=== PATIENT | female | born 1985 | race Caucasian/White ===

== ENCOUNTER 2017-07-23 15:58 | Emergency (ER) | payer SELFPAY ==
[~2017-07-23 15:58] MED LIST: AMOX500T PO; CIPR500T94 PO; HYDR-971 PO; ONDA4TAB10 PO
[2017-07-23] MEDS ORDERED: IV NORMAL SALINE 1,000ML 1,000 ML IV ONE (16:30)
[2017-07-23 16:47] LABS: BASO # 0.1 x10^3/uL (0.0-0.2); BASO % 1 % (0-3); EOS # 0.1 x10^3/uL (0.0-0.7); EOS % 1 % (0-3); HEMATOCRIT 41.6 % (36.0-47.0); LYMPH # 2.5 x10^3/uL (1.0-4.8); LYMPH % 23 % (24-48); MEAN CORPUSCULAR HEMOGLOBIN 28 pg (25-35); MEAN CORPUSCULAR HGB CONC 34 g/dL (31-37); MEAN CORPUSCULAR VOLUME 83 fL (79-100); MONO # 0.5 x10^3/uL (0.0-1.1); MONO % 5 % (0-9); NEUT # 7.6 x10^3uL (1.8-7.7); NEUT % 71 % (31-73); PLATELET COUNT 475 x10^3/uL (140-400); RED BLOOD COUNT 5.03 x10^6/uL (3.50-5.40); RED CELL DISTRIBUTION WIDTH 14.3 % (11.5-14.5); WHITE BLOOD COUNT 10.8 x10^3/uL (4.0-11.0)
[2017-07-23] MEDS ORDERED: ZIPRASIDONE IM 20 MG VIAL. IM ONE (17:00)
[2017-07-23 17:04] LABS: ACETAMIN < 2.0 mcg/mL (10-30); ETHANOL < 10 mg/dL (0-10); SALIC 3.1 mg/dL (2.8-20.0)
[2017-07-23 17:06] LABS: ALBUMIN 3.8 g/dL (3.4-5.0); CALCIUM 9.5 mg/dL (8.5-10.1); CREATININE 0.7 mg/dL (0.6-1.0); DIRECT BILIRUBIN 0.1 mg/dL (0.0-0.2); GFR 98.9; MAGNESIUM 2.1 mg/dL (1.8-2.4); POTASSIUM 3.7 mmol/L (3.5-5.1); TOTAL BILIRUBIN 0.2 mg/dL (0.2-1.0)
--- NOTE | 2017-07-23 17:12 | PHYS DOC ---
Past History Past Medical History: Other Additional Past Medical Histor: heroine abuse Past Surgical History: , Tonsillectomy Alcohol Use: None Drug Use: None Adult General Chief Complaint Chief Complaint: DRUG ABUSE HPI HPI 31-year-old female patient with history of IV heroine abuse states she injected herself with something that she thinks poisoning her. Patient complaining of shortness of breath and almost passed out and doesn't feel good and wants something to make her feels better. She states sh is becoming skinny and she thinks she is going to and asking for Ativan that was given in [facility] last week when she had the same problem. Patient is very agitated and taking constantly and complaining of hallucination and unable to give history. Review of Systems Review of Systems unable to obtain because of medical condition Family History Family History Non-contributory Current Medications Current Medications Current Medications Medications (Trade) Dose Ordered Sig/Dariel Start Time Stop Time Status Last Admin Dose Admin Sodium Chloride 1,000 ml @ 1,000 mls/hr 1X ONCE 07/23/17 16:30 07/23/17 17:29 07/23/17 16:36 1,000 MLS/HR Ziprasidone (Geodon Im) 10 mg 1X ONCE 07/23/17 17:00 07/23/17 17:01 Allergies Allergies Allergies Coded Allergies Type Severity Reaction Last Updated Verified codeine Allergy Severe Itching 04/25/15 Yes prochlorperazine Allergy Intermediate 07/30/14 Yes Physical Exam Physical Exam Constitutional: Anxious, moderate distress, non-toxic appearance. [] HENT: Normocephalic, atraumatic] Eyes: PERRLA, EOMI, conjunctiva normal, no discharge. [] Neck: Normal range of motion, no tenderness, supple, no stridor. [] Cardiovascular: Tachycardia, no murmur [] Lungs & Thorax: Bilateral breath sounds clear to auscultation, hyperventilating [] Abdomen: Bowel sounds normal, soft, no tenderness, no masses, no pulsatile masses. [] Skin: Warm, dry, no erythema, no rash. [] Back: No tenderness, no CVA tenderness. [] Extremities: No tenderness, no cyanosis, no clubbing, ROM intact, no edema. [] Neurologic: Alert and oriented X 1, normal motor function, normal sensory function, no focal deficits noted. [] Psychologic: Anxious, denies suicidal Current Patient Data Lab Results Laboratory Tests Test 07/23/17 16:30 White Blood Count 10.8 x10^3/uL (4.0-11.0) Red Blood Count 5.03 x10^6/uL (3.50-5.40) Hemoglobin 14.0 g/dL (12.0-15.5) Hematocrit 41.6 % (36.0-47.0) Mean Corpuscular Volume 83 fL (79-100) Mean Corpuscular Hemoglobin 28 pg (25-35) Mean Corpuscular Hemoglobin Concent 34 g/dL (31-37) Red Cell Distribution Width 14.3 % (11.5-14.5) Platelet Count 475 x10^3/uL (140-400) H Neutrophils (%) (Auto) 71 % (31-73) Lymphocytes (%) (Auto) 23 % (24-48) L Monocytes (%) (Auto) 5 % (0-9) Eosinophils (%) (Auto) 1 % (0-3) Basophils (%) (Auto) 1 % (0-3) Neutrophils # (Auto) 7.6 x10^3uL (1.8-7.7) Lymphocytes # (Auto) 2.5 x10^3/uL (1.0-4.8) Monocytes # (Auto) 0.5 x10^3/uL (0.0-1.1) Eosinophils # (Auto) 0.1 x10^3/uL (0.0-0.7) Basophils # (Auto) 0.1 x10^3/uL (0.0-0.2) EKG EKG [] Radiology/Procedures Radiology/Procedures [] Course & Med Decision Making Course & Med Decision Making Pertinent Labs are pending. Evaluation of patient in ER showed 31-year-old female patient with history of heroin and methamphetamine abuse brought in by a friend and her 5-year-old child because of using injection something like that make her anxious and shortness of breath. She was very agitated and tachycardic at arrival to ER with methamphetamine influenced. Geodon 10 mg IM given with IV fluid. Patient had her 5-year-old child with her and [place] became involved and took custody of child. Patient care transferred to Dr. Beltran at [address]. [address] Dr[address] Grossman note for details. Impression - 1. Polysubstance Abuse Pt encourage to stop illicit drug use. Pt. currently refuses hospitalization for drug abuse. Pt. encourage to follow up with Counseling center. Pt at discharge reports she now feels normal. Pt. ambulatory without problems. Dragon Disclaimer Dragon Disclaimer This electronic medical record was generated, in whole or in part, using a voice recognition dictation system. Departure Departure: Referrals: PCP,NO (PCP) BRUCE GROSSMAN MD Jul 23, 2017 17:12 DERRICK BELTRAN MD Jul 24, 2017 05:33
[2017-07-23 18:45] VITALS: BP 120/78
[2017-07-23 19:14] LABS: AMPHETAMINE/METHAMPHETAMINE POS (NEG); BARBITURATES NEG (NEG); BENZODIAZEPINES NEG (NEG); CANNABINOIDS NEG (NEG); COCAINE NEG (NEG); METHADONE NEG (NEG); OPIATES POS (NEG); PHENCYCLIDINE NEG (NEG)
[2017-07-23 19:44] LABS: BACTERIA,URINE FEW /HPF (0-FEW); BILIRUBIN,URINE NEG (NEG); CLARITY,URINE CLEAR; COLOR,URINE STRAW; GLUCOSE,URINE NEG (NEG); NITRITE,URINE NEG (NEG); RBC,URINE OCC /HPF (0-2); UROBILINOGEN,URINE 0.2 mg/dL (0.2 mg/dL)
[2017-07-23 19:45] LABS: SQUAMOUS EPITHELIAL CELL,UR MANY /LPF
== END 2017-07-23 19:37 | disposition home or self-care (01) ==
LOC: ER 15:58
DX: F19.10 Other psychoactive substance abuse, uncomplicated (principal); F15.10 Other stimulant abuse, uncomplicated; Z88.5 Allergy status to narcotic agent; Z88.8 Allergy status to other drugs, medicaments and biological substances
CPT/HCPCS: 36415; 80048; 80076; 80307; 81001; 83735; 84702; 85025; 87086; 96360; 96372; 99284; G0480; J3486; G0479; J7030

== ENCOUNTER 2019-05-17 22:17 | Inpatient (IN) | payer MEDICAID ==
[~2019-05-17] VITALS: Ht 157.5 cm; Wt 71.7 kg
[~2019-05-17 22:17] MED LIST changes: +HYDR-3165 PO; -HYDR-971 PO
[2019-05-17] MEDS ORDERED: MORPHINE SULFATE 4 MG/ML DISP.SYRIN. IM ONE (23:15)
[2019-05-17 23:25] LABS: AMPHETAMINE/METHAMPHETAMINE NEG (NEG); BARBITURATES NEG (NEG); BENZODIAZEPINES NEG (NEG); CANNABINOIDS NEG (NEG); COCAINE NEG (NEG); METHADONE NEG (NEG); OPIATES POS (NEG); PHENCYCLIDINE NEG (NEG)
[2019-05-17 23:51] LABS: BASO # 0.1 x10^3/uL (0.0-0.2); BASO % 1 % (0-3); EOS % 0 % (0-3); HEMATOCRIT 44.2 % (36.0-47.0); HEMOGLOBIN 14.2 g/dL (12.0-15.5); LYMPH # 1.5 x10^3/uL (1.0-4.8); LYMPH % 8 % (24-48); MEAN CORPUSCULAR HEMOGLOBIN 28 pg (25-35); MEAN CORPUSCULAR HGB CONC 32 g/dL (31-37); MEAN CORPUSCULAR VOLUME 86 fL (79-100); MONO % 5 % (0-9); NEUT # 17.3 x10^3uL (1.8-7.7); NEUT % 86 % (31-73); PLATELET COUNT 201 x10^3/uL (140-400); RED BLOOD COUNT 5.15 x10^6/uL (3.50-5.40); RED CELL DISTRIBUTION WIDTH 17.1 % (11.5-14.5); WHITE BLOOD COUNT 20.1 x10^3/uL (4.0-11.0)
[2019-05-18] VITALS (7 sets, daily range): BP systolic 113–122; BP diastolic 74–90
[2019-05-18] MEDS ORDERED: MORPHINE SULFATE 4 MG/ML DISP.SYRIN. IV ONE
[2019-05-18 00:02] LABS: CALCIUM 8.1 mg/dL (8.5-10.1); CREATININE 0.8 mg/dL (0.6-1.0); GFR 83.7; POTASSIUM 4.1 mmol/L (3.5-5.1)
[2019-05-18 00:17] LABS: % BANDS 9 % (0-9); % EOS 1 % (0-5); % LYMPHS 10 % (24-48); % MONOS 3 % (0-10); % SEGS 77 % (35-66); ALBUMIN 2.5 g/dL (3.4-5.0); ALBUMIN/GLOBULIN RATIO 0.6 (1.0-1.7); ANISOCYTOSIS SLIGHT; C REACTIVE PROTEIN 26.8 mg/L (0-3.3); PLT ESTIMATE ADEQUATE (ADEQUATE); TOTAL BILIRUBIN 1.2 mg/dL (0.2-1.0); TOTAL PROTEIN 6.6 g/dL (6.4-8.2)
[2019-05-18] MEDS ORDERED: PIPERACILLIN/TAZOBACTAM 3.375 GM in IV NORMAL SALINE 50ML 50 ML IV ONE (00:30)
[2019-05-18] MEDS ORDERED: VANCOMYCIN 1 GM in IV NORMAL SALINE 250ML 250 ML IV ONE (00:30)
[2019-05-18] MEDS ORDERED: ONDANSETRON PF 4 MG/2 ML VIAL. IV PRN (00:45)
[2019-05-18] MEDS ORDERED: PIP/TAZO PER PHARMACY MC PRN (00:45)
[2019-05-18] MEDS ORDERED: PIPERACILLIN/TAZOBACTAM 3.375 GM VIAL IV ONE (01:09)
[2019-05-18] MEDS ORDERED: IV NORMAL SALINE 50ML 50 ML ONE (01:09)
--- NOTE | 2019-05-18 01:17 | RAD ---
STUDY: VENOUS LOWER EXT BILATERAL INDICATION: Lower extremity swelling and pain. TECHNIQUE: Color-flow and pulsed wave duplex ultrasound with compression of venous structures of the bilateral lower extremities. COMPARISON: None Available. FINDINGS: Duplex ultrasound with compression of the deep venous structures of the bilateral lower extremities from the common femoral vein through the popliteal vein is negative for DVT. The posterior tibial and peroneal veins are segmentally visualized and patent where seen. Extensive subcutaneous edema extending from the groin to the ankles. Pulsatile venous waveforms noted. Enlarged inguinal lymph nodes bilaterally without fatty irma. IMPRESSION: 1. No deep venous thrombosis seen throughout either lower extremity. 2. Pulsatile venous waveforms which could represent a manifestation of volume overload. 3. Extensive subcutaneous edema extending from the groin to the ankle bilaterally. 4. Enlarged inguinal lymph nodes bilaterally without fatty irma. The morphology and echotexture makes these nonspecific and a malignant process is not excluded. Recommend correlation with patient history. Electronically signed by: CELESTE JUDD MD (05/18/2019 1:14 AM) [facility]
[2019-05-18] MEDS ORDERED: IV NORMAL SALINE 250ML 250 ML ONE (02:18)
[2019-05-18] MEDS ORDERED: VANCOMYCIN 1 GM VIAL. ONE (02:19)
[2019-05-18] MEDS: MORPHINE SULFATE 2 MG/ML DISP.SYRIN. IV PRN ×3 (02:28→08:22)
--- NOTE | 2019-05-18 05:56 | PHYS DOC ---
Past History Past Medical History: CHF, Other Additional Past Medical Histor: heroine abuse Past Surgical History: No Surgical History Alcohol Use: None Drug Use: Heroin, Methamphetamine Adult General Chief Complaint Chief Complaint: LOWER EXTREMITY EDEMA HPI HPI Patient is a 33-year-old female with history of IV drug use, recently diagnosed congestive heart failure who presents with anasarca with bilateral lower extremity swelling and redness right leg extending from calf to proximal thigh. Patient reports increased right leg pain and swelling with a past 24-48 hours. Pain is rated moderate to severe. No fever chills nausea vomiting or sweats. Denies history of cellulitis. Patient reports chronic shortness of breath. 90s on-call drug use. [] Review of Systems Review of Systems Review symptoms as per history of present illness. All other review symptoms are negative. All other systems were reviewed and found to be within normal limits, except as documented in this note. Current Medications Current Medications Current Medications Medications (Trade) Dose Ordered Sig/Dariel Start Time Stop Time Status Last Admin Dose Admin Lorazepam (Ativan Inj) 1 mg 1X ONCE 05/17/19 23:15 05/17/19 23:16 DC 05/17/19 23:54 1 MG Morphine Sulfate (Morphine 4mg Syringe) 4 mg 1X ONCE 05/18/19 00:00 05/18/19 00:24 DC 05/17/19 23:54 4 MG Allergies Allergies Allergies Coded Allergies Type Severity Reaction Last Updated Verified codeine Allergy Severe Itching 04/25/15 Yes prochlorperazine Allergy Intermediate 07/30/14 Yes Physical Exam Physical Exam Constitutional: Well developed, anasarca, moderate discomfort secondary to pain. [] HENT: Normocephalic, atraumatic, bilateral external ears normal, oropharynx betty st, no oral exudates, nose normal. [] Eyes: PERRLA, EOMI, conjunctiva normal, no discharge. [] Neck: Normal range of motion, no tenderness, supple, no stridor. [] Cardiovascular:Heart rate regular rhythm, no murmur [] Lungs & Thorax: Respirations nonlabored, diminished breath sounds secondary to h abitus.[] Abdomen: Bowel sounds normal, soft, ascites with skin edema.[] Skin: No ileitis right leg extending to right thigh, petechiae on right lateral thigh.] Back: No tenderness, no CVA tenderness. [] Extremities: Bilateral lower extremity edema, with right leg swelling tenderness greater than left.. [] Neurologic: Alert and oriented X 3, normal motor function, normal sensory function, no focal deficits noted. [] Psychologic: Affect normal, judgement normal, mood normal. [] Current Patient Data Vital Signs Vital Signs Date Time Temp Pulse Resp B/P (MAP) Pulse Ox O2 Delivery O2 Flow Rate FiO2 05/18/19 05:02 18 96 Room Air 05/18/19 03:10 98.2 107 113/74 (87) Lab Results Laboratory Tests Test 05/17/19 22:35 05/17/19 23:20 Urine Opiates Screen Pos (NEG) Urine Methadone Screen Neg (NEG) Urine Barbiturates Neg (NEG) Urine Phencyclidine Screen Neg (NEG) Urine Amphetamine/Methamphetamine Neg (NEG) Urine Benzodiazepines Screen Neg (NEG) Urine Cocaine Screen Neg (NEG) Urine Cannabinoids Screen Neg (NEG) Urine Ethyl Alcohol Neg (NEG) White Blood Count 20.1 x10^3/uL (4.0-11.0) H Red Blood Count 5.15 x10^6/uL (3.50-5.40) Hemoglobin 14.2 g/dL (12.0-15.5) Hematocrit 44.2 % (36.0-47.0) Mean Corpuscular Volume 86 fL (79-100) Mean Corpuscular Hemoglobin 28 pg (25-35) Mean Corpuscular Hemoglobin Concent 32 g/dL (31-37) Red Cell Distribution Width 17.1 % (11.5-14.5) H Platelet Count 201 x10^3/uL (140-400) Neutrophils (%) (Auto) 86 % (31-73) H Lymphocytes (%) (Auto) 8 % (24-48) L Monocytes (%) (Auto) 5 % (0-9) Eosinophils (%) (Auto) 0 % (0-3) Basophils (%) (Auto) 1 % (0-3) Neutrophils # (Auto) 17.3 x10^3uL (1.8-7.7) H Lymphocytes # (Auto) 1.5 x10^3/uL (1.0-4.8) Monocytes # (Auto) 1.0 x10^3/uL (0.0-1.1) Eosinophils # (Auto) 0.0 x10^3/uL (0.0-0.7) Basophils # (Auto) 0.1 x10^3/uL (0.0-0.2) Segmented Neutrophils % 77 % (35-66) H Band Neutrophils % 9 % (0-9) Lymphocytes % 10 % (24-48) L Monocytes % 3 % (0-10) Eosinophils % 1 % (0-5) Platelet Estimate Adequate (ADEQUATE) Anisocytosis Slight Maternal Serum HCG Beta Subunit < 1 mIU/mL (0-6) Sodium Level 141 mmol/L (136-145) Potassium Level 4.1 mmol/L (3.5-5.1) Chloride Level 106 mmol/L (98-107) Carbon Dioxide Level 23 mmol/L (21-32) Anion Gap 12 (6-14) Blood Urea Nitrogen 9 mg/dL (7-20) Creatinine 0.8 mg/dL (0.6-1.0) Estimated GFR (Cockcroft-Gault) 83.7 BUN/Creatinine Ratio 11 (6-20) Glucose Level 83 mg/dL (70-99) Lactic Acid Level 1.4 mmol/L (0.4-2.0) Calcium Level 8.1 mg/dL (8.5-10.1) L Total Bilirubin 1.2 mg/dL (0.2-1.0) H Aspartate Amino Transferase (AST) 27 U/L (15-37) Alanine Aminotransferase (ALT) 17 U/L (14-59) Alkaline Phosphatase 224 U/L (46-116) H Troponin I Quantitative < 0.017 ng/mL (0-0.055) C-Reactive Protein 26.8 mg/L (0-3.3) H FK-Xlr-H-Type Natriuretic Peptide 5771 pg/mL (0-124) H Total Protein 6.6 g/dL (6.4-8.2) Albumin 2.5 g/dL (3.4-5.0) L Albumin/Globulin Ratio 0.6 (1.0-1.7) L Ethyl Alcohol Level < 10 mg/dL (0-10) EKG EKG [EKG: Sinus tach] Radiology/Procedures Radiology/Procedures [Chest x-ray: Cardiomegaly CV ultrasound: pending] Course & Med Decision Making Course & Med Decision Making Pertinent Labs and Imaging studies reviewed. (See chart for details) [Ansarca with cellulitis right lower extremities. No respiratory distress or compromise. Antibiotics started. Dr. Degroot to admit] Sg Disclaimer Sg Disclaimer This electronic medical record was generated, in whole or in part, using a voice recognition dictation system. Departure Departure: Impression: Primary Impression: Anasarca Additional Impression: Cellulitis of right lower extremity Disposition: ADMITTED INPATIENT Condition: STABLE Referrals: PCP,NO (PCP) Problem Qualifiers AVERY GILMAN DO May 18, 2019 05:56
[2019-05-18] MEDS: PIPERACILLIN/TAZOBACTAM 3.375 GM in IV NORMAL SALINE 50ML 50 ML IV SCH ×4 (06:02→23:58)
--- NOTE | 2019-05-18 06:02 | EKG ---
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
--- NOTE | 2019-05-18 08:06 | RAD ---
CHEST AP ONLY History: Shortness of air Comparison: February 12, 2011 Findings: Single view of the chest is submitted. There is somewhat suboptimal inspiration. There is mild bibasilar airspace opacity. There is no significant pneumothorax. There could be very small bilateral pleural effusions. Pericardial cardiac silhouette appears more enlarged than previously. Impression: 1. Pericardial cardiac silhouette appears more enlarged than previously and there are suspected very small bilateral pleural effusions although better compared with PA chest to include lateral view. There is also mild bibasilar airspace opacity which may be atelectasis or infiltrates. Electronically signed by: Ramo Rush MD (05/18/2019 8:03 AM) [facility]
[2019-05-18] MEDS: VANCOMYCIN PER PHARMACY MC PRN (08:38)
[2019-05-18] MEDS: oxyCODONE IR 5 MG TABLET PO PRN ×3 (10:26→18:00)
[2019-05-18] MEDS: VANCOMYCIN 1.25 GM in IV NORMAL SALINE 250ML 250 ML IV SCH (13:47)
[2019-05-18] MEDS: MORPHINE SULFATE 4 MG/ML DISP.SYRIN. IV PRN ×2 (15:40→20:05)
--- NOTE | 2019-05-18 15:40 | HP ---
ADMIT DATE: 05/18/2019 HISTORY OF PRESENT ILLNESS: The patient is a 33-year-old female patient who came to the Emergency Room complaining of lower extremity edema. The patient is known to have history of IV drug use, recently diagnosed with congestive heart failure, who presented with generalized anasarca and bilateral lower extremity swelling and redness on the right leg extending from the calf to the proximal thigh. She reports also increased right leg pain and swelling in the past 24-48 hours. Pain is rated moderate to severe. She denied any fever, nausea, vomiting, or sweating. Denied any history of previous cellulitis. The patient reports chronic shortness of breath. She was evaluated and was found to have marked leukocytosis. Her chemistry was essentially unremarkable. Her lactic acid was only 1.4. Toxic screen was positive for opiates, negative for other drugs, and was admitted to the hospital for treatment of her right lower extremity cellulitis. Her chest x-ray showed pericardial and cardiac silhouette appears enlarged than previously. There is suspected very small bilateral pleural effusion, although better compared with a PA chest than ____ into lateral view. She has also mild bibasilar airspace opacity, which may be atelectasis or infiltrate. The patient was started on IV vancomycin as well as Zosyn. We will continue with that and continue with her other medications and pain management. PAST MEDICAL HISTORY: Significant for MRSA bacteremia. She has endocarditis with positive tricuspid regurgitation on transesophageal echocardiograms, acute pulmonary septic emboli, submassive, not a candidate initially for anticoagulation due to anemia, thrombocytopenia, acute metabolic encephalopathy, polysubstance abuse and withdrawal symptoms, thrombocytopenia from sepsis, multiple tattoos, acute anemia, acute kidney injury from both vasomotor nephropathy and possible acute interstitial nephritis, has resolved. PAST SURGICAL HISTORY: Significant for apparently paracentesis as she has had paracentesis done at [facility]. She had also THU, which showed ejection fraction of 45%. There is a flattened septum consistent with right ventricular volume and pressure overload. There is also a large mobile vegetation on the tricuspid valve measuring 2 x 2.4. I would also order another transthoracic echocardiogram and continue meanwhile with IV antibiotic. ALLERGIES: She is allergic to LATEX, NATURAL RUBBER, and PROCARBAZINE. FAMILY HISTORY: Noncontributory. SOCIAL HISTORY: She is and lives with her . She has no children. She is a smoker every day about half a pack a day for the last 10 years, history of alcohol and substance abuse. She stated she quit met about a year ago. MEDICATIONS: She apparently was on ciprofloxacin, amoxicillin, ondansetron, as well as hydrocodone/APAP 5/325 one to two tablets every 6 hours. PHYSICAL EXAMINATION: GENERAL: On arrival to the Emergency Room, the patient was unwell, complaining of pain, but there is no pallor, jaundice, cyanosis, or thyromegaly. No jugular venous distention, but generalized anasarca. VITAL SIGNS: Her heart rate was 112, blood pressure was 123/88, temperature was 98.7, respiratory rate was 18, and oxygen saturation was 95% on room air. HEAD, EYES, EARS, NOSE AND THROAT: Normocephalic, atraumatic. NECK: Supple. HEART: Showed normal first and second heart sounds. No gallop, rub, or murmur. CHEST: Clear to auscultation. No crepitation or rhonchi. ABDOMEN: Distended, diffuse tenderness. No guarding or rigidity. No organomegaly. All hernial orifice intact. Bowel sounds are normal. NEUROLOGIC: She was awake, alert, responding appropriately. All cranial nerves intact. EXTREMITIES: She moves extremities without difficulty. Examination of the extremities showed no clubbing or cyanosis, but generalized anasarca. She has multiple tattoos. LABORATORY DATA: Her lab work on admission showed a white cell count of 20,000, hemoglobin 14, hematocrit 44, MCV 86, and platelet count of 101,000. Her serum manual differential showed 86% polymorphs, 8% lymphocytes and 5% monocytes. Her serum sodium was 141, potassium 4.1, chloride 106, bicarbonate 23, anion gap of 12, BUN 9, creatinine 0.8, estimated GFR was 84 mL per minute. Her glucose was 83. Lactic acid was 1.4, calcium was 8.1. Bilirubin was 1.2. AST and ALT were normal. Alkaline phosphatase was high at 224. C-reactive protein was 26.8. Beta-natriuretic peptide was 5771. Total protein was 6.6, albumin 2.5. Her toxic screen was positive for opiates. Her Doppler ultrasound of both lower extremities showed no deep vein thrombosis seen throughout either lower extremity. Pulsatile venous waveform, this could represent a manifestation of volume overload. Extensive subcutaneous edema extending from the groin to the ankle bilaterally, enlarged inguinal lymph nodes bilaterally without fatty irma. The morphology and its texture make this unspecific and a malignant process is not excluded. ASSESSMENT AND PLAN: In summary, this is a 33-year-old female patient who was admitted with right lower extremity cellulitis. She has also has chronic systolic congestive heart failure. She has had severe tricuspid regurgitation and trace mitral regurgitation. She has large mobile vegetation on the tricuspid valve measuring 2 x 2.4. She apparently was transferred to [facility] on her discharge on 02/16/2019. I will get the records from [facility]. We will also arrange for her to go way with IV antibiotic. Meanwhile, we will continue with all other medications and start her on Lasix IV to assist with volume-overload and we will adjust her antibiotics according to the result of the culture and sensitivity. AUNDREA NAPIER MD DR: ANDREW/javi JOB#: [id number] / [id number]
[2019-05-18 15:52] LABS: HEMATOCRIT 40.4 % (36.0-47.0); RED BLOOD COUNT 4.69 x10^6/uL (3.50-5.40); WHITE BLOOD COUNT 9.7 x10^3/uL (4.0-11.0)
[2019-05-18] MEDS: LACTOBACILLUS RHAMNOSUS GG 1 CAPSULE. PO SCH (20:05)
[2019-05-18] MEDS ORDERED: LORazepam 0.5 MG TABLET PO ONE (21:00)
[2019-05-18] MEDS ORDERED: FUROSEMIDE 20 MG/2 ML VIAL IVP ONE (21:00)
[2019-05-19] MEDS: VANCOMYCIN 1.25 GM in IV NORMAL SALINE 250ML 250 ML IV SCH ×2 (00:07→13:57)
[2019-05-19] MEDS: MORPHINE SULFATE 4 MG/ML DISP.SYRIN. IV PRN ×5 (00:08→18:36)
[2019-05-19 05:06] VITALS: BP 109/78
[2019-05-19] MEDS: PIPERACILLIN/TAZOBACTAM 3.375 GM in IV NORMAL SALINE 50ML 50 ML IV SCH ×3 (06:21→18:36)
[2019-05-19 08:24] LABS: ALBUMIN 2.1 g/dL (3.4-5.0); ALBUMIN/GLOBULIN RATIO 0.6 (1.0-1.7); CALCIUM 7.7 mg/dL (8.5-10.1); CREATININE 0.8 mg/dL (0.6-1.0); GFR 83.7; POTASSIUM 3.8 mmol/L (3.5-5.1); TOTAL BILIRUBIN 0.7 mg/dL (0.2-1.0); TOTAL PROTEIN 5.6 g/dL (6.4-8.2)
[2019-05-19 08:36] LABS: BASO # 0.1 x10^3/uL (0.0-0.2); BASO % 1 % (0-3); EOS # 0.3 x10^3/uL (0.0-0.7); EOS % 4 % (0-3); HEMATOCRIT 38.4 % (36.0-47.0); LYMPH % 13 % (24-48); MEAN CORPUSCULAR HEMOGLOBIN 27 pg (25-35); MEAN CORPUSCULAR HGB CONC 31 g/dL (31-37); MEAN CORPUSCULAR VOLUME 86 fL (79-100); MONO # 0.8 x10^3/uL (0.0-1.1); MONO % 10 % (0-9); NEUT # 5.5 x10^3uL (1.8-7.7); NEUT % 72 % (31-73); PLATELET COUNT 178 x10^3/uL (140-400); RED BLOOD COUNT 4.45 x10^6/uL (3.50-5.40); RED CELL DISTRIBUTION WIDTH 17.2 % (11.5-14.5); WHITE BLOOD COUNT 7.6 x10^3/uL (4.0-11.0)
[2019-05-19] MEDS: LACTOBACILLUS RHAMNOSUS GG 1 CAPSULE. PO SCH ×2 (09:48→20:21)
[2019-05-19 10:19] LABS: % ATYL 7 % (0-0); % BASOS 2 % (0-3); % EOS 2 % (0-5); % LYMPHS 8 % (24-48); % MONOS 9 % (0-10); % SEGS 72 % (35-66)
[2019-05-19 10:30] LABS: PLT ESTIMATE ADEQUATE (ADEQUATE)
[2019-05-19 10:36] LABS: TARGET CELLS OCC; TEAR DROP CELLS OCC
[2019-05-19 13:27] LABS: VANC TR 16.9 mcg/mL (10.0-20.0)
[2019-05-19 15:36] VITALS: BP 109/75
[2019-05-19 19:48] VITALS: BP 117/78
[2019-05-19] MEDS: oxyCODONE IR 5 MG TABLET PO PRN (20:22)
[2019-05-19] MEDS: POTASSIUM CHLORIDE 20 MEQ TABLET.ER. PO SCH (21:00)
[2019-05-20] MEDS: MORPHINE SULFATE 4 MG/ML DISP.SYRIN. IV PRN ×5 (00:35→23:11)
[2019-05-20] MEDS: PIPERACILLIN/TAZOBACTAM 3.375 GM in IV NORMAL SALINE 50ML 50 ML IV SCH ×5 (00:36→23:12)
[2019-05-20] MEDS: VANCOMYCIN 1.25 GM in IV NORMAL SALINE 250ML 250 ML IV SCH ×2 (01:35→13:29)
[2019-05-20] MEDS: oxyCODONE IR 5 MG TABLET PO PRN (03:17)
--- NOTE | 2019-05-20 04:09 | PN ---
DATE: 05/19/2019 SUBJECTIVE: The patient is resting slightly propped up in bed; definitely more awake, alert and seems to be comfortable. OBJECTIVE: GENERAL: She is pale, but not jaundiced or cyanosed. No lymphadenopathy, no thyromegaly, no jugular venous distention, but generalized anasarca. VITAL SIGNS: Her heart rate was 105, blood pressure was 109/75, temperature was 97.3, respiratory rate was 18 and oxygen saturation was 97%. HEAD, EYES, EARS, NOSE AND THROAT: Showed normocephalic, atraumatic. NECK: Supple. HEART: Showed normal first and second heart sounds. No gallop or murmur. CHEST: Clear to auscultation. No crepitation or rhonchi. ABDOMEN: Distended, soft, nontender. No guarding or rigidity. No organomegaly. All hernial orifice intact. Bowel sounds normal. NEUROLOGIC: She was definitely more awake, alert, responding appropriately. All cranial nerves intact. She moves extremities without difficulty. She has no flapping tremor. LABORATORY DATA: Her lab work this morning showed the white cell count down to 7600, hemoglobin 12, hematocrit 38, MCV 86 and platelet count of 178,000. Her chemistry showed serum sodium 142, potassium 3.8, chloride 108, bicarbonate 25, anion gap of 9, BUN 7, creatinine 0.8, estimated GFR was 84 mL per minute. Her glucose was 110, calcium was 7.7. Total bilirubin, AST, ALT were normal. Alkaline phosphatase slightly elevated. Ammonia was 19, total protein was 5.6, albumin 2.1. Prothrombin time, INR normal. Urinalysis was negative for test and tox screen showed her vancomycin trough level was within therapeutic range. So far, her blood cultures are negative. ASSESSMENT: 1. Right lower extremity cellulitis, for which she is now on IV vancomycin and Zosyn. She is responding well. Her white cell count is down. She is afebrile. 2. Chronic systolic congestive heart failure. 3. She has severe tricuspid regurgitation and trace mitral regurgitation. 4. She has large mobile vegetation on the tricuspid valve measuring 2 x 2.4 cm. PLAN: The patient was transferred to [facility] on 02/16/2019; I have requested the records. Meanwhile, we will continue with the IV antibiotic, continue with pain management, continue with IV Lasix for fluid overload. AUNDREA NAPIER MD DR: Aryan JOB#: [id number] / [id number]
[2019-05-20 06:39] VITALS: BP 120/82
[2019-05-20] MEDS: LACTOBACILLUS RHAMNOSUS GG 1 CAPSULE. PO SCH ×2 (08:42→19:41)
[2019-05-20] MEDS: POTASSIUM CHLORIDE 20 MEQ TABLET.ER. PO SCH ×4 (08:42→19:41)
[2019-05-20] MEDS: FUROSEMIDE 20 MG TABLET PO SCH ×3 (08:42→10:55)
[2019-05-20 11:07] VITALS: BP 100/70
[2019-05-20] MEDS: VANCOMYCIN PER PHARMACY MC PRN (14:26)
[2019-05-20] MEDS ORDERED: MORPHINE SULFATE 4 MG/ML DISP.SYRIN. IV ONE ×2 (14:30→16:30)
[2019-05-20 15:37] VITALS: BP 105/70
[2019-05-20 19:39] VITALS: BP 108/75
[2019-05-20 22:48] VITALS: BP 119/88
--- NOTE | 2019-05-20 22:58 | PN ---
DATE: 05/20/2019 SUBJECTIVE: The patient is sitting in her bed, eating her lunch. She continued to complain of pain, but she is afebrile. Her white cell count has dramatically improved from 20,000-7600. So far, her blood cultures are negative. On examining her, she definitely looks much improved compared to the day she came in and there is no pallor, jaundice or cyanosis. No lymphadenopathy, no thyromegaly, but that she has generalized anasarca. She has severe hypoalbuminemia with serum albumin is only 2.1 mg/dL. OBJECTIVE: VITAL SIGNS: Her heart rate was 95, blood pressure 100/70, temperature 98.2, respiratory rate was 18 and oxygen saturation was 96%. HEAD, EYES, EARS, NOSE AND THROAT: Showed normocephalic, atraumatic. NECK: Supple. CARDIAC: Normal first and second heart sounds. No gallop or murmur. CHEST: Clear to auscultation. No crepitation or rhonchi. ABDOMEN: Distended, soft, nontender. NEUROLOGIC: She is awake, alert, responding appropriately. All cranial nerves intact. She moves extremities without difficulty. She continued to have generalized anasarca; however, all the erythema of the right leg has largely subsided. Her intake over the last 24 hours was 2350, output was 2100. LABORATORY DATA: Showed a serum sodium 142, potassium 3.8, chloride 108, bicarbonate 25, anion gap of 9, BUN 7, creatinine 0.8, estimated GFR was 84 mL per minute. Her glucose 110, calcium was 7.7. Total bilirubin, AST, ALT were normal. Alkaline phosphatase slightly elevated. Ammonia is 19. Total protein was 5.6, albumin 2.1. ASSESSMENT: 1. Right lower extremity cellulitis for which she is on vancomycin and Zosyn. She is responding well. Her white cell count is down. She is afebrile. 2. Chronic systolic congestive heart failure. 3. Severe tricuspid regurgitation, trace mitral regurgitation. 4. She has large mobile vegetation in tricuspid valve measuring 2 x 2.4. 5. Chronic hepatitis C with chronic liver disease. PLAN: My plan is to continue with IV antibiotic and pain management and Lasix. We will repeat her lab works tomorrow hopefully discharge her home on oral antibiotics. AUNDREA NAPIER MD DR: Aryan JOB#: [id number] / [id number]
[2019-05-21] MEDS: VANCOMYCIN 1.25 GM in IV NORMAL SALINE 250ML 250 ML IV SCH ×2 (01:10→13:00)
[2019-05-21] MEDS: MORPHINE SULFATE 4 MG/ML DISP.SYRIN. IV PRN ×3 (02:17→10:32)
[2019-05-21 05:06] VITALS: BP 102/69
[2019-05-21] MEDS: PIPERACILLIN/TAZOBACTAM 3.375 GM in IV NORMAL SALINE 50ML 50 ML IV SCH ×3 (06:01→13:09)
[2019-05-21] MEDS: LACTOBACILLUS RHAMNOSUS GG 1 CAPSULE. PO SCH (08:22)
[2019-05-21] MEDS: POTASSIUM CHLORIDE 20 MEQ TABLET.ER. PO SCH (08:22)
[2019-05-21] MEDS: FUROSEMIDE 20 MG TABLET PO SCH (08:22)
[2019-05-21 11:09] VITALS: BP 105/72
[2019-05-21] MEDS ORDERED: oxyCODONE/APAP 5/325 1 TAB TABLET PO PRN (13:15)
[2019-05-21 15:29] VITALS: BP 114/81
[2019-05-21] MEDS ORDERED: CEPH-264 PO (16:49)
[2019-05-21] MEDS ORDERED: OXYC5CAP PO (16:49)
--- NOTE | 2019-05-21 18:08 | DS ---
DATE OF DISCHARGE: HOSPITAL COURSE: The patient is a 33-year-old female patient who came to the Emergency Room with pain, redness and swelling of the outer aspect of the right lower extremity. She was admitted with right lower extremity cellulitis. She also has generalized anasarca and bilateral lower extremity swelling and redness on the right leg extending from the calf to the proximal thigh. She was started on IV vancomycin and Zosyn and she did actually very well. Her erythema has completely subsided. She remained afebrile. Her white cell count came down from 20,000 to 7600, has been up and about, eating and drinking and walking around without any assistance or assistive device. A decision was made to discharge her home to continue treatment on oral Keflex 500 mg 4 times a day for 6 more days. PHYSICAL EXAMINATION: GENERAL: When I examined her today, she was sitting on the edge of the bed comfortably, in no apparent distress. No pallor, jaundice, cyanosis or thyromegaly. No jugular venous distention, but generalized anasarca. VITAL SIGNS: Her heart rate was 69, blood pressure 117/78, temperature 98.2, respiratory rate was 18 and oxygen saturation was 97%. HEAD, EYES, EARS, NOSE AND THROAT: Showed normocephalic, atraumatic. NECK: Supple. HEART: Showed normal first and second heart sounds. No gallop or murmur. CHEST: Clear to auscultation. No crepitation or rhonchi. ABDOMEN: Distended, soft, nontender. NEUROLOGIC: She is definitely more awake, alert, responding appropriately. All cranial nerves intact. She moves extremities without difficulty. She ambulates without assistance or assistive devices. Her intake was 4000, output was 600. LABORATORY DATA: Her most recent lab work showed a white cell count 7600, hemoglobin 12, hematocrit 38, MCV 86 and platelet count of 178,000. Her chemistry showed serum sodium 142, potassium 3.8, chloride 108, bicarbonate 25, anion gap of 9, BUN 7, creatinine 0.8, estimated GFR was 84 mL per minute. Her glucose 110, calcium was 7.7. Total bilirubin, AST, ALT were normal. Alkaline phosphatase slightly elevated. Ammonia was 19, total protein was 5.6, albumin 2.1. FINAL DISCHARGE DIAGNOSES: 1. Right lower extremity cellulitis, resolved. She was discharged to continue on oral Keflex. 2. Chronic systolic congestive heart failure. 3. Severe tricuspid regurgitation, trace mitral regurgitation. 4. 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 5. Chronic hepatitis with chronic liver disease. 6. Polysubstance abuse. AUNDREA NAPIER MD DR: ANDREW/javi JOB#: [id number] / [id number]
== END 2019-05-21 17:19 | disposition home or self-care (01) | DRG 871 ==
LOC: ER 22:17 → 1 SOUTH 05-18 00:15
PROVIDERS: ADMIT Internal Medicine; ATTEND Internal Medicine
DX: A41.9 Sepsis, unspecified organism (principal); I50.33 Acute on chronic diastolic (congestive) heart failure; E43 Unspecified severe protein-calorie malnutrition; L03.115 Cellulitis of right lower limb; B18.2 Chronic viral hepatitis C; E88.09 Other disorders of plasma-protein metabolism, not elsewhere classified; F17.200 Nicotine dependence, unspecified, uncomplicated; F19.10 Other psychoactive substance abuse, uncomplicated; I08.1 Rheumatic disorders of both mitral and tricuspid valves; Z86.711 Personal history of pulmonary embolism; Z88.8 Allergy status to other drugs, medicaments and biological substances; Z79.899 Other long term (current) drug therapy; Z68.28 Body mass index [BMI] 28.0-28.9, adult
CPT/HCPCS: 36415; 71045; 80053; 80202; 80307; 81025; 82140; 83605; 83880; 84484; 84702; 85007; 85025; 85027; 85610; 86140; 87040; 93005; 93970; 94640; 96365; 96367; 96375; G0480; J2060; J2270; J2543; J3370; J7050; 99285-25

== ENCOUNTER 2019-12-15 16:11 | Emergency (ER) | payer SELFPAY ==
[~2019-12-15] VITALS: Ht 157.5 cm; Wt 59.1 kg
[~2019-12-15 16:11] MED LIST changes: +CEPH-264 PO; +OXYC5CAP PO
[2019-12-15] MEDS ORDERED: 0.9 % SODIUM CHLORIDE 10 ML DISP.SYRIN. IV PRN (16:30)
[2019-12-15] MEDS ORDERED: MORPHINE SULFATE 4 MG/ML DISP.SYRIN. IV/SQ PRN (16:30)
--- NOTE | 2019-12-15 16:37 | PHYS DOC ---
Past History Past Medical History: CHF, Other Additional Past Medical Histor: heroine abuse Past Surgical History: No Surgical History Alcohol Use: None Drug Use: Heroin, Methamphetamine General Adult EDM: Chief Complaint: CHEST PAIN HPI: HPI: The history was obtained from the patient. Patient is a 34-year-old female with PMH intravenous drug use, history of endocarditis with septic emboli, liver disease who presents with a chief complaint of chest pain. Patient states she has had intermittent chest pain over the past week. States it tends to last for minutes to hours. She states nothing specifically seems to provoke it. States the pain is sharp and aching when it is present. States the pain is nonradiating. She states she was also shortness of breath. Particular when she breathes in. She states this feels similar to when she was diagnosed with endocarditis and subsequent septic emboli in January 2019. States she was hospitalized for several months but did not fully complete her antibiotic course. She notes she last injected IV drugs yesterday. She states that her abdomen also feels somewhat distended and she does note a history of liver failure requiring paracentesis in the past. She is unsure whether she has had infection in this area before. She denies any urinary symptoms. She denies any fevers at home. She denies any cough. She states it is very difficult to lay flat because it makes her more short of breath. She does endorse bendopnea as well. Review of Systems: Review of Systems: Constitutional: Positive for fatigue, subjective fevers, chills Eyes: Denies change in visual acuity HENT: Denies nasal congestion or sore throat Respiratory: Positive for shortness of breath Cardiovascular: Denies chest pain or edema GI: Positive for abdominal pain and distention : Denies dysuria Musculoskeletal: Denies back pain or joint pain Integument: Denies rash Neurologic: Denies headache, focal weakness or sensory changes Endocrine: Denies polyuria or polydipsia Lymphatic: Denies swollen glands Psychiatric: Denies depression or anxiety Heart Score: Risk Factors: Risk Factors: DM, Current or recent (<one month) smoker, HTN, HLP, family history of CAD, obesity. Risk Scores: Score 0 - 3: 2.5% MACE over next 6 weeks - Discharge Home Score 4 - 6: 20.3% MACE over next 6 weeks - Admit for Clinical Observation Score 7 - 10: 72.7% MACE over next 6 weeks - Early Invasive Strategies Current Medications: Current Meds: Current Medications Medications (Trade) Dose Ordered Sig/Dariel Start Time Stop Time Status Last Admin Dose Admin Morphine Sulfate (Morphine 4mg Syringe) 4 mg PRN Q15MIN PRN 12/15/19 16:30 12/16/19 16:29 Sodium Chloride (Normal Saline Flush) 10 ml QSHIFT PRN 12/15/19 16:30 Allergies: Allergies: Allergies Coded Allergies Type Severity Reaction Last Updated Verified prochlorperazine Allergy Intermediate 07/30/14 Yes Physical Exam: PE: Constitutional: Well developed, well nourished, no acute distress, non-toxic appearance. [] HENT: Normocephalic, atraumatic, bilateral external ears normal, oropharynx moist, no oral exudates, nose normal. [] Eyes: PERRLA, EOMI, conjunctiva normal, no discharge. No scleral icterus appreciated. Neck: Normal range of motion, no tenderness, supple, no stridor. [] Cardiovascular: Tachycardia. Regular. No obvious murmurs auscultated. Lungs & Thorax: Lungs with rhonchorous breath sounds bilaterally. Abdomen: Abdomen mildly distended. Moderate tenderness palpation diffusely. No localization or involuntary guarding appreciated. No peritonitis. Skin: Warm, dry, no erythema, no rash. [] Back: Midline T6-T8 thoracic tenderness. No step-offs or deformities noted. Extremities: Upper extremity with track marin bilaterally. Neurologic: Alert and oriented X 3, normal motor function, normal sensory function, no focal deficits noted. [] Psychologic: Affect normal, judgement normal, mood normal. [] EKG: EKG: EKG consistent with sinus tachycardia. Ventricular rate of 110 bpm. Right axis noted. QTc 471 ms. No acute ischemic changes appreciated. Patient does have inverted T waves in lead III, aVF. Small Q waves in the leads III and aVF as well. No signs of acute ischemia [] Radiology/Procedures: Radiology/Procedures: Laboratory Tests Test 12/15/19 16:23 White Blood Count 6.4 x10^3/uL Red Blood Count 5.05 x10^6/uL Hemoglobin 14.3 g/dL Hematocrit 44.4 % Mean Corpuscular Volume 88 fL Mean Corpuscular Hemoglobin 28 pg Mean Corpuscular Hemoglobin Concent 32 g/dL Red Cell Distribution Width 14.6 % Platelet Count 192 x10^3/uL Neutrophils (%) (Auto) 58 % Lymphocytes (%) (Auto) 29 % Monocytes (%) (Auto) 9 % Eosinophils (%) (Auto) 3 % Basophils (%) (Auto) 1 % Neutrophils # (Auto) 3.7 x10^3uL Lymphocytes # (Auto) 1.8 x10^3/uL Monocytes # (Auto) 0.6 x10^3/uL Eosinophils # (Auto) 0.2 x10^3/uL Basophils # (Auto) 0.1 x10^3/uL Prothrombin Time 10.6 SEC Prothromb Time International Ratio 1.0 Sodium Level 140 mmol/L Potassium Level 4.1 mmol/L Chloride Level 103 mmol/L Carbon Dioxide Level 28 mmol/L Anion Gap 9 Blood Urea Nitrogen 19 mg/dL Creatinine 0.9 mg/dL Estimated GFR (Cockcroft-Gault) 72.6 BUN/Creatinine Ratio 21 Glucose Level 132 mg/dL Lactic Acid Level 1.6 mmol/L Calcium Level 9.2 mg/dL Total Bilirubin 1.0 mg/dL Aspartate Amino Transf (AST/SGOT) 50 U/L Alanine Aminotransferase (ALT/SGPT) 45 U/L Alkaline Phosphatase 241 U/L Creatine Kinase 62 U/L Troponin I Quantitative < 0.017 ng/mL Total Protein 8.3 g/dL Albumin 3.8 g/dL Albumin/Globulin Ratio 0.8 Lipase 53 U/L Serum Test, Qualitative Negative Current Medications Medications (Trade) Dose Ordered Sig/Dariel Route PRN Reason Start Time Stop Time Status Last Admin Dose Admin Sodium Chloride (Normal Saline Flush) 10 ml QSHIFT PRN IV AFTER MEDS AND BLOOD DRAWS 12/15/19 16:30 Morphine Sulfate (Morphine 4mg Syringe) 4 mg PRN Q15MIN PRN IV/SQ PAIN GREATER THAN 3/10 12/15/19 16:30 12/16/19 16:29 12/15/19 16:48 Iohexol (Omnipaque 350 Mg/ml) 100 ml 1X ONCE IV 12/15/19 16:45 12/15/19 16:52 DC [] Course & Med Decision Making: Course & Med Decision Making Pertinent Labs and Imaging studies reviewed. (See chart for details) Patient is a 34-year-old female who presents with chief complaint of chest pain, shortness of breath, and orthopnea. She does have a significant history including polysubstance abuse as well as endocarditis and septic emboli diagnosed in January 2018. She states she did not complete her treatment. Upon arrival the patient was tachycardic. EKG consistent with sinus tachycardia. I was initially concerned for underlying infection given her abnormal vital signs and symptoms. Sepsis work-up was initiated. Blood cultures were obtained and are pending. Laboratory analysis does show no leukocytosis. Mild transaminitis. Prior to completion of labs and any imaging patient stated she would like to leave the emergency department. I did explain to her that we cannot fully exclude life or limb threatening illness if she does not stay for the remainder of her work-up. She states that she would like to follow-up with [facility]. Patient does appear to be alert and oriented x3 at this time. She does appear to have basic understanding of her health care needs as well as potential consequences. Although I do feel the patient is using poor judgment she will be leaving AGAINST MEDICAL ADVICE. IV was removed prior to departure. She was encouraged to report back to emergency department should she want further treatment or care at any time. Sg Disclaimer: Sg Disclaimer: This electronic medical record was generated, in whole or in part, using a voice recognition dictation system. Departure Departure: Disposition: 01 HOME/RESIDENCE PRIOR TO ADM Condition: STABLE Referrals: PCP,NO (PCP) Patient Instructions: Sepsis, Adult Additional Instructions: Please return emergency department at any time should you want to be further evaluated. Please follow-up with your primary care physician in the next 1 to 2 days. Justification of Admission: Justification of Admission: Justification of Admission Dx: N/A ELIZABETH ARNDT DO Dec 15, 2019 16:37
[2019-12-15 16:44] LABS: BASO # 0.1 x10^3/uL (0.0-0.2); BASO % 1 % (0-3); EOS # 0.2 x10^3/uL (0.0-0.7); EOS % 3 % (0-3); HEMATOCRIT 44.4 % (36.0-47.0); HEMOGLOBIN 14.3 g/dL (12.0-15.5); LYMPH # 1.8 x10^3/uL (1.0-4.8); LYMPH % 29 % (24-48); MEAN CORPUSCULAR HEMOGLOBIN 28 pg (25-35); MEAN CORPUSCULAR HGB CONC 32 g/dL (31-37); MEAN CORPUSCULAR VOLUME 88 fL (79-100); MONO # 0.6 x10^3/uL (0.0-1.1); MONO % 9 % (0-9); NEUT # 3.7 x10^3uL (1.8-7.7); NEUT % 58 % (31-73); PLATELET COUNT 192 x10^3/uL (140-400); RED BLOOD COUNT 5.05 x10^6/uL (3.50-5.40); RED CELL DISTRIBUTION WIDTH 14.6 % (11.5-14.5); WHITE BLOOD COUNT 6.4 x10^3/uL (4.0-11.0)
[2019-12-15] MEDS ORDERED: IOHEXOL 350 MG/ML 100 ML VIAL. IV ONE (16:45)
--- NOTE | 2019-12-15 16:45 | EKG ---
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
[2019-12-15 16:53] LABS: CALCIUM 9.2 mg/dL (8.5-10.1); CREATININE 0.9 mg/dL (0.6-1.0); GFR 72.6; POTASSIUM 4.1 mmol/L (3.5-5.1); PREG TEST PT QUAL NEGATIVE (NEG)
[2019-12-15 17:06] LABS: ALBUMIN 3.8 g/dL (3.4-5.0); ALBUMIN/GLOBULIN RATIO 0.8 (1.0-1.7); TOTAL PROTEIN 8.3 g/dL (6.4-8.2)
[2019-12-15 17:07] VITALS: BP 113/72
== END 2019-12-15 17:00 | disposition left against medical advice (07) ==
LOC: ER 16:11
DX: R07.89 Other chest pain (principal); R06.02 Shortness of breath; I50.9 Heart failure, unspecified; F15.10 Other stimulant abuse, uncomplicated; F11.10 Opioid abuse, uncomplicated; Z88.8 Allergy status to other drugs, medicaments and biological substances
CPT/HCPCS: 36415; 80053; 82550; 83605; 83690; 84484; 84703; 85025; 85610; 87040; 93005; 96374; 99284; J2270

== ENCOUNTER 2020-05-26 17:54 | Emergency (ER) | payer SELFPAY ==
[~2020-05-26] VITALS: Ht 157.5 cm; Wt 59.1 kg
[2020-05-26] MEDS ORDERED: ASPIRIN 325 MG TABLET PO ONE (18:45)
[2020-05-26] MEDS ORDERED: 0.9 % SODIUM CHLORIDE 10 ML DISP.SYRIN. IV PRN (18:45)
--- NOTE | 2020-05-26 19:03 | PHYS DOC ---
Past History Past Medical History: CHF, Other Additional Past Medical Histor: heroine abuse, endocarditis, pul. htn (HARSH NICHOLAS APRN) Past Surgical History: No Surgical History (HARSH NICHOLAS APRN) Alcohol Use: None Drug Use: Heroin, Methamphetamine (HARSH NICHOLAS APRN) Adult General Chief Complaint Chief Complaint: MECHANICAL FALL HPI HPI Patient is a 34-year-old female patient with history of heroin use, methamphetamine use, CHF, endocarditis, who presents to the ED today complaining of falling a week ago. Patient was brought in by EMS, EMS crew reports they were called because patient's neighbor reported a woman screaming in patient's house, EMS tried knocking the door with no success so the broke into the house. and found patient lying on the floor her head down. Patient was in the house with a man who they report appeared intoxicated. Patient is reporting she fell down a week ago. He is complaining of pain everywhere and states she broke her femu. She states she took 3 tablets of 7.5 mg of hydrocodone that she got from "a friend" but wants something for pain right now. She is screaming like a cat. (HARSH NICHOLAS APRN) Review of Systems Review of Systems Constitutional: Denies fever or chills [] Eyes: Denies change in visual acuity, redness, or eye pain [] HENT: Denies nasal congestion or sore throat [] Respiratory: Denies cough or shortness of breath [] Cardiovascular: No additional information not addressed in HPI [] GI: Denies abdominal pain, nausea, vomiting, bloody stools or diarrhea [] : Denies dysuria or hematuria [] Musculoskeletal: Reports pain improved after falling Integument: Denies rash or skin lesions [] Neurologic: Denies headache, focal weakness or sensory changes [] All other systems were reviewed and found to be within normal limits, except as documented in this note. (HARSH NICHOLAS APRN) Current Medications Current Medications Current Medications Medications (Trade) Dose Ordered Sig/Dariel Start Time Stop Time Status Last Admin Dose Admin Aspirin (Nora Aspirin) 325 mg 1X ONCE 05/26/20 18:45 05/26/20 18:49 DC Sodium Chloride (Normal Saline Flush) 10 ml QSHIFT PRN 05/26/20 18:45 (HARSH NICHOLAS APRN) Allergies Allergies Allergies Coded Allergies Type Severity Reaction Last Updated Verified prochlorperazine Allergy Intermediate 07/30/14 Yes (HARSH NICHOLAS APRN) Physical Exam Physical Exam Constitutional: Well developed, well nourished, no acute distress, non-toxic appearance. [] HENT: Normocephalic, atraumatic, bilateral external ears normal, oropharynx moist, no oral exudates, nose normal. All her teeth are broken and decayed consistent with drug use of methamphetamine Eyes: PERRLA, EOMI, conjunctiva normal, no discharge. [] Neck: Normal range of motion, no tenderness, supple, no stridor. [] Cardiovascular:Heart rate regular rhythm, no murmur [] Lungs & Thorax: Bilateral breath sounds clear to auscultation [] Abdomen: Bowel sounds normal, soft, no tenderness, no masses, no pulsatile masses. [] Skin: Multiple scabs and bruises consistent with IV drug use noted throughout her body Back: No tenderness, no CVA tenderness. [] Extremities: No tenderness, no cyanosis, no clubbing, ROM intact, no edema. [] Neurologic: Alert and oriented X 3, normal motor function, normal sensory function, no focal deficits noted. Cranial nerves II through XII intact 3/5 strength to BUE, and BLE. Patient can move her extremities though you have to cue her Psychologic: Flat affect, restless, appears anxious (HARSH NICHOLAS APRN) Current Patient Data Vital Signs Vital Signs Date Time Temp Pulse Resp B/P (MAP) Pulse Ox O2 Delivery O2 Flow Rate FiO2 05/26/20 18:00 98.0 112 22 113/72 (86) 97 Room Air (HARSH NICHOLAS APRN) EKG EKG [] (HARSH NICHOLAS APRN) Radiology/Procedures Radiology/Procedures []PROCEDURE: CT THORACIC SPINE WO CONTRAST EXAMINATION: CT LUMBAR SPINE WO, CT THORACIC SPINE WO CLINICAL HISTORY: Pain following fall TECHNIQUE: Noncontrast serial axial images obtained through the thoracic and lum bar spine with sagittal and coronal reformations. CT Dose Reduction Employed: One or more of the following individualized dose reduction techniques were utilized for this examination: 1. Automated exposure control 2. Adjustment of the mA and/or kV according to patient size 3. Use of iterative reconstruction technique. COMPARISON: CT chest/abdomen/pelvis 02/10/2019 FINDINGS: Motion artifact at the cervicothoracic and thoracolumbar junctions limits evaluation. T-SPINE: Normal anatomic alignment. No evidence of acute fracture or spondylolisthesis. Mild disc space narrowing in the upper thoracic spine. Posterior elements unremarkable. Paravertebral soft tissues unremarkable. Incidentally noted multiple large cavitary lesions throughout the bilateral rakan gs. Compared to the prior study, there is markedly decreased number of solid nodular densities but increased number and size of cavitary lesions. Cardiomegaly. L-SPINE: Normal anatomic alignment. No evidence of acute fracture or spondylolisthesis. Disc spaces maintained. No significant neural foraminal or osseous spinal stenosis. SI joints maintained. Paravertebral soft tissues unremarkable. IMPRESSION: No evidence of acute osseous abnormality involving the thoracic or lumbar spine. Multiple large cavitary pulmonary nodules, increased in size and number since prior study. Findings are nonspecific but may be related to fungal or mycobacterial infection. Electronically signed by: Brandon Barajas DO (05/26/2020 7:38 PM) [facility] DICTATED AND SIGNED BY: BRANDON BARAJAS DO DATE: 05/26/201923 CC: DERRICK CROSS MD; HARSH NICHOLAS APRN; PCP,NO ~MTH0 0 PROCEDURE: CT THORACIC SPINE WO CONTRAST EXAMINATION: CT LUMBAR SPINE WO, CT THORACIC SPINE WO CLINICAL HISTORY: Pain following fall TECHNIQUE: Noncontrast serial axial images obtained through the thoracic and lumbar spine with sagittal and coronal reformations. CT Dose Reduction Employed: One or more of the following individualized dose reduction techniques were utilized for this examination: 1. Automated exposure control 2. Adjustment of the mA and/or kV according to patient size 3. Use of iterative reconstruction technique. COMPARISON: CT chest/abdomen/pelvis 02/10/2019 FINDINGS: Motion artifact at the cervicothoracic and thoracolumbar junctions limits evaluation. T-SPINE: Normal anatomic alignment. No evidence of acute fracture or spondylolisthesis. Mild disc space narrowing in the upper thoracic spine. Posterior elements unremarkable. Paravertebral soft tissues unremarkable. Incidentally noted multiple large cavitary lesions throughout the bilateral lungs. Compared to the prior study, there is markedly decreased number of solid nodular densities but increased number and size of cavitary lesions. Car diomegaly. L-SPINE: Normal anatomic alignment. No evidence of acute fracture or spondylolisthesis. Disc spaces maintained. No significant neural foraminal or osseous spinal stenosis. SI joints maintained. Paravertebral soft tissues unremarkable. IMPRESSION: No evidence of acute osseous abnormality involving the thoracic or lumbar spine. Multiple large cavitary pulmonary nodules, increased in size and number since prior study. Findings are nonspecific but may be related to fungal or mycobacterial infection. Electronically signed by: Brandon Barajas DO (05/26/2020 7:38 PM) [facility] DI[facility]ATED AND SIGNED BY: BRANDON BARAJAS DO DATE: 05/26/201923 CC: DERRICK CROSS MD; HARSH NICHOLAS APRN; PCP,NO ~MTH0 0 PROCEDURE: HIP BILATERAL WITH PELVIS XR HIP (WITH OR WITHOUT PELVIS) 1 VIEW, XR CHEST 1V Clinical History: Reason: fall pain / Spl. Instructions: / History: One view chest: Technique: AP view of the chest was obtained at 05/26/2020 6:47 PM. Comparison: None. Findings: There is multiple cavitary masses bilaterally. The heart is moderately enlarged. The pulmonary vessels appear normal. The pleural margins are clear. Impression: 1. Moderate cardiomegaly. 2. Multiple bilateral cavitary masses. This could be inflammatory. This could be infectious such as septic emboli or could be neoplastic such as metastatic squamous cell carcinoma. End impression Pelvis and bilateral hips: AP view the pelvis obtained as well as AP and frog leg views of the hips bi laterally. The visualized osseous structures appear normal. There is formed stool in visualized portions of the colon. IMPRESSION: 1. No osseous abnormality detected. 2. Constipation. See one view chest. Electronically signed by: Esa Bernal III, MD (05/26/2020 7:41 PM) [facility] DICTATED AND SIGNED BY: ESA BERNAL III, MD DATE: 05/26/201935 CC: DERRICK CROSS MD; HARSH NICHOLAS APRN; PCP,NO ~MTH0 0 PROCEDURE: PORTABLE CHEST 1V XR HIP (WITH OR WITHOUT PELVIS) 1 VIEW, XR CHEST 1V Clinical History: Reason: fall pain / Spl. Instructions: / History: One view chest: Technique: AP view of the chest was obtained at 05/26/2020 6:47 PM. Comparison: None. Findings: There is multiple cavitary masses bilaterally. The heart is moderately enlarged. The pulmonary vessels appear normal. The pleural margins are clear. Impression: 1. Moderate cardiomegaly. 2. Multiple bilateral cavitary masses. This could be inflammatory. This could be infectious such as septic emboli or could be neoplastic such as metastatic squamous cell carcinoma. End impression Pelvis and bilateral hips: AP view the pelvis obtained as well as AP and frog leg views of the hips bilaterally. The visualized osseous structures appear normal. There is formed stool in visualized portions of the colon. IMPRESSION: 1. No osseous abnormality detected. 2. Constipation. See one view chest. Electronically signed by: Esa Bernal III, MD (05/26/2020 7:41 PM) [facility] DICTATED AND SIGNED BY: ESA BERNAL III, MD DATE: 05/26/201935 CC: DERRICK CROSS MD; HARSH NICHOLAS APRN; PCP,NO ~MTH0 0 PROCEDURE: CT HEAD AND CERVICAL SPINE WO CT HEAD AND C-SPINE WO Date: 05/26/2020 6:47 PM Clinical Indication: Reason: fall pain / Spl. Instructions: / History: Comparison: None. Technique: 5 mm axial tomographic images were obtained of the head without contrast. These were viewed on brain and bone windows. CT imaging of the cervical spine was performed without contrast. Coronal and sagittal reformatted images were performed. One or more of the following dose reduction techniques were utilized: Automated exposure control (AEC), Adjustment of mA and/or kV according to patient size, Use of iterative reconstruction technique such as ASiR, CT scan done according to ALARA and image gently/image wisely HEAD FINDINGS: The brain parenchyma is normal in attenuation. No intra- or extra-axial mass or fluid collection. No acute hemorrhage. The ventricles are normal in size, shape, and morphology. The pineda-white matter junction is normal. The basilar cisterns are patent. The visualized paranasal sinuses are normal. The visualized portions of the orbits and globes are normal. The mastoid air cells are clear. No aggressive osseous lesion or fracture. CERVICAL SPINE FINDINGS: Nonunion of the anterior and posterior arches of C1. Diastases of the midline anterior arch measuring 11 mm is new since comparison of 02/12/2011. Normal alignment of the lateral masses of C1 on C2. Prevertebral hematoma measuring 1.5 x 1.0 x 3.0 cm (TV by AP by CC) centimeters at silhouette is. Small amount of ventral epidural blood products at C1-C2 with mild narrowing of the spinal canal. Retropharyngeal effusion. Straightening of the cervical lordosis. The intervertebral disc heights are maintained. No high-grade spinal canal stenosis or neural foraminal narrowing. The thyroid gland is normal. No cervical lymphadenopathy. The visualized aerodigestive tract is unremarkable. The visualized lung apices are clear. IMPRESSION: 1. 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 Small prevertebral and epidural hematomas and retropharyngeal effusion suggesting an acute traumatic diastases. 2. No acute intracranial process. FOR INTERNAL CODING PURPOSES Critical result: Findings discussed with the emergency department at 05/26/2020 7:43 PM. RESULT CODE: (C) Electronically signed by: Kaylynn Su MD (05/26/2020 7:44 PM) [facility] DICTATED AND SIGNED BY: KAYLYNN SU MD DATE: 05/26/201920 CC: DERRICK CROSS MD; HASRH NICHOLAS APRN; PCP,NO ~MTH0 0 (HARSH NICHOLAS APRN) Heart Score Risk Factors: Risk Factors: DM, Current or recent (<one month) smoker, HTN, HLP, family history of CAD, obesity. Risk Scores: Risk Factors: DM, Current or recent (<one month) smoker, HTN, HLP, family history of CAD, obesity. (HARSH NICHOLAS APRN) Course & Med Decision Making Course & Med Decision Making Pertinent Labs and Imaging studies reviewed. (See chart for details) This is a 34-year-old female patient presenting to the ED today from home to be evaluated after being found on the floor. See HPI. She is complaining of pain everywhere. She is a IV drug user of heroin, she also uses methamphetamine. CT of the head and cervical spine was noted for congenital nonunion of the anterior arch of C1 with diastases of 11 mm which is new since exam of 02/12/2011. Small prevertebral and epidural hematomas and retropharyngeal effusion suggesting an acute traumatic diastases. I spoke to Symone ROSEN for neurosurgery, he requested to transfer patient to [facility] in ICU. Spoke to Dr. Parada who accepted patient Patient is waiting for bed availability in transportation to [place] (HARSH NICHOLAS APRN) Dragon Disclaimer Dragon Disclaimer This electronic medical record was generated, in whole or in part, using a voice recognition dictation system. (HARSH NICHOLAS APRN) Departure Departure: Impression: Primary Impression: Fall Additional Impressions: Closed C1 fracture Drug abuse Disposition: 05 DC/TRF OTHER TYPE INSTITUTI Condition: STABLE Referrals: PCP,NO (PCP) [place] Disclaimer This chart was dictated in whole or in part using Voice Recognition software in a busy, high-work load, and often noisy Emergency Department environment. It may contain unintended and wholly unrecognized errors or omissions. (DERRICK CROSS MD) Attending Co-Sign Attending Co-Sign The patient was seen and interviewed as well as examined at the bedside. The chart was reviewed. The case was discussed. Agree with the plan of care. (DERRICK CROSS MD) Problem Qualifiers HARSH NICHOLAS APRN May 26, 2020 19:03 DERRICK CROSS MD May 28, 2020 15:28
--- NOTE | 2020-05-26 19:41 | RAD ---
EXAMINATION: CT LUMBAR SPINE WO, CT THORACIC SPINE WO CLINICAL HISTORY: Pain following fall TECHNIQUE: Noncontrast serial axial images obtained through the thoracic and lumbar spine with sagitt al and coronal reformations. CT Dose Reduction Employed: One or more of the following individualized dose reduction techniques wer e utilized for this examination: 1. Automated exposure control 2. Adjustment of the mA and/or kV ac cording to patient size 3. Use of iterative reconstruction technique. COMPARISON: CT chest/abdomen/pelvis 02/10/2019 FINDINGS: Motion artifact at the cervicothoracic and thoracolumbar junctions limits evaluation. T-SPINE: Normal anatomic alignment. No evidence of acute fracture or spondylolisthesis. Mild disc space narrow ing in the upper thoracic spine. Posterior elements unremarkable. Paravertebral soft tissues unremark able. Incidentally noted multiple large cavitary lesions throughout the bilateral lungs. Compared to the pr ior study, there is markedly decreased number of solid nodular densities but increased number and siz e of cavitary lesions. Cardiomegaly. L-SPINE: Normal anatomic alignment. No evidence of acute fracture or spondylolisthesis. Disc spaces maintained . No significant neural foraminal or osseous spinal stenosis. SI joints maintained. Paravertebral sof t tissues unremarkable. IMPRESSION: No evidence of acute osseous abnormality involving the thoracic or lumbar spine. Multiple large cavitary pulmonary nodules, increased in size and number since prior study. Findings a re nonspecific but may be related to fungal or mycobacterial infection. Electronically signed by: Brandon Barnes DO (05/26/2020 7:38 PM) [facility]
--- NOTE | 2020-05-26 19:43 | RAD ---
XR HIP (WITH OR WITHOUT PELVIS) 1 VIEW, XR CHEST 1V Clinical History: Reason: fall pain / Spl. Instructions: / History: One view chest: Technique: AP view of the chest was obtained at 05/26/2020 6:47 PM. Comparison: None. Findings: There is multiple cavitary masses bilaterally. The heart is moderately enlarged. The pulmonary vessels appear normal. The pleural margins are clear. Impression: 1. Moderate cardiomegaly. 2. Multiple bilateral cavitary masses. This could be inflammatory. This could be infectious such as s eptic emboli or could be neoplastic such as metastatic squamous cell carcinoma. End impression Pelvis and bilateral hips: AP view the pelvis obtained as well as AP and frog leg views of the hips bilaterally. The visualized osseous structures appear normal. There is formed stool in visualized portions of the colon. IMPRESSION: 1. No osseous abnormality detected. 2. Constipation. See one view chest. Electronically signed by: Ken Moreno III, MD (05/26/2020 7:41 PM) [facility]
--- NOTE | 2020-05-26 19:46 | RAD ---
CT HEAD AND C-SPINE WO Date: 05/26/2020 6:47 PM Clinical Indication: Reason: fall pain / Spl. Instructions: / History: Comparison: None. Technique: 5 mm axial tomographic images were obtained of the head without contrast. These were view ed on brain and bone windows. CT imaging of the cervical spine was performed without contrast. Coron al and sagittal reformatted images were performed. One or more of the following dose reduction techni ques were utilized: Automated exposure control (AEC), Adjustment of mA and/or kV according to patient size, Use of iterative reconstruction technique such as ASiR, CT scan done according to ALARA and im age gently/image wisely HEAD FINDINGS: The brain parenchyma is normal in attenuation. No intra- or extra-axial mass or fluid collection. No acute hemorrhage. The ventricles are normal in size, shape, and morphology. The pineda-white matter louisa ction is normal. The basilar cisterns are patent. The visualized paranasal sinuses are normal. The visualized portions of the orbits and globes are no rmal. The mastoid air cells are clear. No aggressive osseous lesion or fracture. CERVICAL SPINE FINDINGS: Nonunion of the anterior and posterior arches of C1. Diastases of the midline anterior arch measuring 11 mm is new since comparison of 02/12/2011. Normal alignment of the lateral masses of C1 on C2. Prev ertebral hematoma measuring 1.5 x 1.0 x 3.0 cm (TV by AP by CC) centimeters at silhouette is. Small a mount of ventral epidural blood products at C1-C2 with mild narrowing of the spinal canal. Retrophary ngeal effusion. Straightening of the cervical lordosis. The intervertebral disc heights are maintained. No high-grade spinal canal stenosis or neural foraminal narrowing. The thyroid gland is normal. No cervical lymphadenopathy. The visualized aerodigestive tract is unrem arkable. The visualized lung apices are clear. IMPRESSION: 1. 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 Small prevertebral and epidural hematomas and retropharyngeal effusion suggesting an acute traumatic diastases. 2. No acute intracranial process. FOR INTERNAL CODING PURPOSES Critical result: Findings discussed with the emergency department at 05/26/2020 7:43 PM. RESULT CODE: (C) Electronically signed by: Ramo Su MD (05/26/2020 7:44 PM) [facility]
[2020-05-26 19:59] LABS: BASO % 0 % (0-3); EOS % 0 % (0-3); HEMATOCRIT 36.8 % (36.0-47.0); LYMPH # 1.2 x10^3/uL (1.0-4.8); LYMPH % 7 % (24-48); MEAN CORPUSCULAR HEMOGLOBIN 29 pg (25-35); MEAN CORPUSCULAR HGB CONC 33 g/dL (31-37); MEAN CORPUSCULAR VOLUME 88 fL (79-100); MONO # 0.7 x10^3/uL (0.0-1.1); MONO % 4 % (0-9); NEUT # 14.9 x10^3uL (1.8-7.7); NEUT % 88 % (31-73); PLATELET COUNT 128 x10^3/uL (140-400); RED BLOOD COUNT 4.17 x10^6/uL (3.50-5.40); RED CELL DISTRIBUTION WIDTH 16.1 % (11.5-14.5); WHITE BLOOD COUNT 16.9 x10^3/uL (4.0-11.0)
[2020-05-26 20:10] LABS: CALCIUM 8.1 mg/dL (8.5-10.1); CREATININE 1.1 mg/dL (0.6-1.0); GFR 57.6; POTASSIUM 4.3 mmol/L (3.5-5.1)
[2020-05-26 20:26] LABS: ALBUMIN/GLOBULIN RATIO 0.4 (1.0-1.7); TOTAL BILIRUBIN 5.1 mg/dL (0.2-1.0); TOTAL PROTEIN 6.5 g/dL (6.4-8.2)
[2020-05-26 20:30] LABS: BARBITURATES NEG (NEG); BENZODIAZEPINES NEG (NEG); CANNABINOIDS NEG (NEG); COCAINE NEG (NEG); METHADONE NEG (NEG); OPIATES POS (NEG); PHENCYCLIDINE NEG (NEG)
[2020-05-26 20:33] LABS: AMPHETAMINE/METHAMPHETAMINE POS (NEG)
[2020-05-26 20:36] LABS: BACTERIA,URINE MOD /HPF (0-FEW); BILIRUBIN,URINE MOD (NEG); CLARITY,URINE CLOUDY; COLOR,URINE ORANGE; GLUCOSE,URINE NEG (NEG); NITRITE,URINE NEG (NEG); SQUAMOUS EPITHELIAL CELL,UR FEW /LPF; UROBILINOGEN,URINE >=8.0 mg/dL (0.2 mg/dL)
[2020-05-26 20:40] VITALS: BP 108/68
[2020-05-26 22:04] LABS: % EOS 1 % (0-5); % LYMPHS 7 % (24-48); % MONOS 5 % (0-10); % SEGS 87 % (35-66)
[2020-05-26 22:05] LABS: PLT ESTIMATE DECREASED (ADEQUATE)
--- NOTE | 2020-05-26 23:36 | EKG ---
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
== END 2020-05-26 23:48 | disposition short-term general hospital (02) ==
LOC: ER 17:54
DX: S12.090A Other displaced fracture of first cervical vertebra, initial encounter for closed fracture (principal); M25.551 Pain in right hip; M25.552 Pain in left hip; R10.9 Unspecified abdominal pain; I50.9 Heart failure, unspecified; F15.90 Other stimulant use, unspecified, uncomplicated; F11.90 Opioid use, unspecified, uncomplicated; Z88.8 Allergy status to other drugs, medicaments and biological substances; W18.39XA Other fall on same level, initial encounter; Y93.89 Activity, other specified; Y92.89 Other specified places as the place of occurrence of the external cause; Y99.8 Other external cause status
CPT/HCPCS: 36415; 70450; 71045; 72125; 72128; 72131; 73521; 80053; 80307; 81001; 82553; 83605; 83690; 83735; 83880; 84443; 84484; 85007; 85025; 85610; 85730; 87040; 87086; 93005; 96374; 96376; 99285; G0480; J2060; 87077; 87186

== ENCOUNTER 2021-05-17 17:11 | Emergency (ER) | payer SELFPAY ==
[~2021-05-17] VITALS: Ht 157.5 cm; Wt 61.8 kg
--- NOTE | 2021-05-17 17:40 | PHYS DOC ---
Past History Past Medical History: CHF, Other Additional Past Medical Histor: heroine abuse, endocarditis, pul. htn (HARSH NICHOLAS AGRICULTURAL ENGINEERING TECHNICIAN) Past Surgical History: No Surgical History (HARSH NICHOLAS APRN) Alcohol Use: None Drug Use: Heroin, Methamphetamine (HARSH NICHOLAS AGRICULTURAL ENGINEERING TECHNICIAN) Adult General HPI HPI Patient is a 35-year-old female patient who presents to the ED today with mild intermittent right foot pain, symptoms began yesterday after she scratched the top of her right foot with her left foot while wearing boots. Patient states she had a snap sound from the right foot. Patient is complaining of pain on top of the right foot worse on weightbearing. Describes the pain as sharp. Denies anything relieving the pain. (HARSH NICHOLAS APRN) Review of Systems Review of Systems Constitutional: Denies fever or chills [] Musculoskeletal: Reports right foot pain Integument: Denies rash or skin lesions [] Neurologic: Denies headache, focal weakness or sensory changes [] All other systems were reviewed and found to be within normal limits, except as documented in this note. (HARSH NICHOLAS APRN) Allergies Allergies Allergies Coded Allergies Type Severity Reaction Last Updated Verified prochlorperazine Allergy Intermediate 07/30/14 Yes (HARSH NICHOLAS APRN) Physical Exam Physical Exam Constitutional: Well developed, well nourished, no acute distress, non-toxic appearance. [] Skin: Warm, dry, no erythema, no rash. [] Back: No tenderness, no CVA tenderness. [] Extremities: Right foot with no obvious deformity. Tenderness on top of the right foot, no navicular bone tenderness or tenderness on the base of the fifth metatarsal of the right foot. Full range of motion to the right foot and toes. +2 left pedal pulse. Cap refill less than 2 seconds toes Neurologic: Alert and oriented X 3, normal motor function, normal sensory function, no focal deficits noted. [] Psychologic: Affect normal, judgement normal, mood normal. [] (HARSH NICHOLAS AGRICULTURAL ENGINEERING TECHNICIAN) EKG EKG [] (HARSH NICHOLAS APRN) Radiology/Procedures Radiology/Procedures []PROCEDURE: FOOT RIGHT 3V Exam: Right foot 3 views INDICATION: Pain TECHNIQUE: Frontal, lateral oblique views of the right Comparisons: None FINDINGS: Bone mineralization is normal. There is a subtle nondisplaced fracture involving the proximal diaphysis of the fourth metatarsal seen best on frontal view. Overlying soft tissue swelling is noted. Mild midfoot degenerative changes are seen. IMPRESSION: Nondisplaced fracture involving the proximal diaphysis of the fourth metatarsal. Electronically signed by: Lala Joe MD (05/17/2021 5:52 PM) [facility] DICTATED AND SIGNED BY: LALA JOE MD DATE: 05/17/21 175 CC: HARSH NICHOLAS APRN; PCP,NO ~MTH0 0 (HARSH NICHOLAS APRN) Heart Score C/O Chest Pain: N/A Risk Factors: Risk Factors: DM, Current or recent (<one month) smoker, HTN, HLP, family history of CAD, obesity. Risk Scores: Risk Factors: DM, Current or recent (<one month) smoker, HTN, HLP, family history of CAD, obesity. (HARSH NICHOLAS APRN) Course & Med Decision Making Course & Med Decision Making Pertinent Labs and Imaging studies reviewed. (See chart for details) This is a 35-year-old female patient presented to the ED today with right foot pain that began yesterday. Right foot x-rays interpreted by radiologist were noted for nondisplaced fracture involving the proximal diaphysis of the fourth metatarsal. Patient was placed in a short posterior splint by the ED RN, neurovascular exam done by me is normal. Ice elevation encouraged. Provided contact information for Dr. Clifton orthopedic and instructed to call tomorrow (HARSH NICHOLAS APRN) Course & Med Decision Making Did not see or evaluate patient. Did not discuss patient with IT PROGRAMMER. Agree with IT PROGRAMMER's work-up and disposition per note. (EMERSON GORDON MD) Dragon Disclaimer Dragon Disclaimer This electronic medical record was generated, in whole or in part, using a voice recognition dictation system. (HARSH NICHOLAS APRN) Departure Departure: Impression: Primary Impression: Metatarsal bone fracture Disposition: HOME / SELF CARE / HOMELESS Condition: STABLE Referrals: PCP,NO (PCP) Please call Dr. Clifton Orthopedic doctor tomorrrow and set up a follow up appointment [address], [place] [address] Patient Instructions: Metatarsal Fracture with [facility] Additional Instructions: You were seen for right foot pain, you have fractured your right fourth metatarsal. Try to ice and elevate the extremity. Follow-up with the provided orthopedic doctor. Contact his office tomorrow and set up a follow-up appointment Scripts Hydrocodone Bit/Acetaminophen (HYDROCODONE-APAP 5-325 ) 1 Each Tablet 1 TAB PO PRN Q6HRS PRN for PAIN, #10 TAB 0 Refills Prov: HARSH NICHOLAS APRN 05/17/21 Problem Qualifiers Primary Impression: Metatarsal bone fracture Encounter type: initial encounter Metatarsal bone: fourth Fracture type: closed Fracture alignment: nondisplaced Laterality: right Qualified Codes: S92.344A - Nondisplaced fracture of fourth metatarsal bone, right f oot, initial encounter for closed fracture HARSH NICHOLAS APRN May 17, 2021 17:40 EMERSON GORDON MD May 17, 2021 19:28
--- NOTE | 2021-05-17 17:54 | RAD ---
Exam: Right foot 3 views INDICATION: Pain TECHNIQUE: Frontal, lateral oblique views of the right Comparisons: None FINDINGS: Bone mineralization is normal. There is a subtle nondisplaced fracture involving the proximal diaphys is of the fourth metatarsal seen best on frontal view. Overlying soft tissue swelling is noted. Mild midfoot degenerative changes are seen. IMPRESSION: Nondisplaced fracture involving the proximal diaphysis of the fourth metatarsal. Electronically signed by: Debbi Carey MD (05/17/2021 5:52 PM) ANNIE
[2021-05-17] MEDS ORDERED: HYDR-2155 PO (18:29)
[2021-05-17 18:39] VITALS: BP 116/76
[2021-05-17] MEDS ORDERED: NAPROXEN 500 MG TABLET PO ONE (18:45)
[2021-05-17] MEDS ORDERED: HYDROcodone/APAP 5/325MG 1 TAB TABLET PO ONE (18:45)
== END 2021-05-17 18:39 | disposition home or self-care (01) ==
LOC: ER 17:11
DX: S92.344A Nondisplaced fracture of fourth metatarsal bone, right foot, initial encounter for closed fracture (principal); I50.9 Heart failure, unspecified; Z88.8 Allergy status to other drugs, medicaments and biological substances; X58.XXXA Exposure to other specified factors, initial encounter; Y93.89 Activity, other specified; Y92.89 Other specified places as the place of occurrence of the external cause; Y99.8 Other external cause status
CPT/HCPCS: 29515; 73630; 99283

== ENCOUNTER 2021-06-14 09:06 | Emergency (ER) | payer SELFPAY ==
[~2021-06-14] VITALS: Ht 157.5 cm; Wt 61.8 kg
[~2021-06-14 09:06] MED LIST changes: +HYDR-2155 PO
--- NOTE | 2021-06-14 09:14 | PHYS DOC ---
Past History Past Medical History: CHF, Other Additional Past Medical Histor: heroine abuse, endocarditis, pul. htn; PE Past Surgical History: Other Additional Past Surgical Histo: chest tube placed and removed Alcohol Use: None Drug Use: Heroin, Methamphetamine Adult General HPI HPI Patient is a 35-year-old presenting for acute on chronic neck pain. Reports she fractured her neck several years ago and has had chronic pain from this for which she is seen in addition to other complaints by a pain clinic in outpatient setting. Nonetheless, she reports 2 nights ago tripping on household item and falling reinjuring her neck. Did not hit her head or lose consciousness but reports whiplash type injury and has been having midline neck pain with associated left muscle pain that radiates up into her head. She has been taking [id number] medications in addition to her prescribed methadone and other medications such as gabapentin without relief. She contacted her pain clinic and notified them of symptoms and she was advised to present to our ER for evaluation Review of Systems Review of Systems Fourteen body systems of review of systems have been reviewed. See HPI for pertinent positives and negative responses, other haile all other systems are negative, non-pertinent or non-contributory Allergies Allergies Allergies Coded Allergies Type Severity Reaction Last Updated Verified prochlorperazine Allergy Intermediate 05/17/21 Yes Penicillins Allergy Unknown 05/17/21 Yes Physical Exam Physical Exam Constitutional: Well developed, appears older than stated age, no acute distr ess, non-toxic appearance. Appears under the influence of illicit drugs, fidgety throughout exam HENT: Normocephalic, atraumatic, bilateral external ears normal, oropharynx moist, no oral exudates, nose normal. Eyes: PERRLA, EOMI, conjunctiva normal, no discharge. Neck: Normal range of motion, no midline tenderness or step-off, supple, no stridor. Pain to left paracervical muscles Cardiovascular: Heart rate regular, sinus rhythm, no murmurs rubs or gallops Lungs & Thorax: Bilateral breath sounds clear to auscultation Abdomen: Bowel sounds normal, soft, no tenderness, no masses, no pulsatile masses. Nonsurgical abdomen, no peritoneal signs Skin: Warm, dry, no erythema, no rash. Back: No tenderness, no CVA tenderness. Extremities: No tenderness, no cyanosis, no clubbing, ROM intact, no edema. 2+ radial pulses to bilateral upper extremities Neurologic: Alert and oriented X 3, cranial nerves II through XII intact, medial radial and ulnar nerves intact bilateral upper extremities, normal motor & senso ry function, no focal deficits noted. Psychologic: Anxious affect and mood Current Patient Data Vital Signs Vital Signs Date Time Temp Pulse Resp B/P (MAP) Pulse Ox O2 Delivery O2 Flow Rate FiO2 06/14/21 09:15 98.0 105 18 145/82 (103) 97 Room Air EKG EKG [] Radiology/Procedures Radiology/Procedures EXAM: Cervical spine, 5 views. HISTORY: Pain. Prior cervical fracture. COMPARISON: None. FINDINGS: 5 views of the cervical spine are obtained. There is no listhesis. The vertebral bodies are normal in height and the disc spaces are preserved. IMPRESSION: No acute osseous finding. Electronically signed by: Anika Giron MD (06/14/2021 10:04 AM) [id number] Heart Score C/O Chest Pain: No Risk Factors: Risk Factors: DM, Current or recent (<one month) smoker, HTN, HLP, family history of CAD, obesity. Risk Scores: Risk Factors: DM, Current or recent (<one month) smoker, HTN, HLP, family history of CAD, obesity. Course & Med Decision Making Course & Med Decision Making ABCs unremarkable HPI physical exam and radiographic neck unremarkable in a low risk mechanism of injury and patient who is well-established in outpatient setting with pain specialist Patient acutely under the influence of drugs today given presentation. She is deferring urine drug screen. I offered nonnarcotic means of treating pain but patient deferred and got upset. I disclosed that we will not be giving any narcotics in the setting of her having established pain specialist in outpatient setting and presentation concerning for acute methamphetamine use. Patient subsequently discharged with instructions for close PCP follow-up Sg Disclaimer Sg Disclaimer This electronic medical record was generated, in whole or in part, using a voice recognition dictation system. Departure Departure: Impression: Primary Impression: Neck pain Disposition: HOME / SELF CARE / HOMELESS Condition: STABLE Referrals: PCPSAWYER (PCP) Additional Instructions: You were seen for musculoskeletal pain. You should return to the ED if you develop worsening pain, fever, numbness, tingling, weakness, or any other new or concerning symptoms. Your pain is most likely due to a muscle strain and should improve with ibuprofen, stretching, and activity. And/or Tylenol if it does not improve you should follow up with a primary care doctor. ELANA BRAMBILA DO Jun 14, 2021 09:14
[2021-06-14 09:15] VITALS: BP 145/82
--- NOTE | 2021-06-14 10:06 | RAD ---
EXAM: Cervical spine, 5 views. HISTORY: Pain. Prior cervical fracture. COMPARISON: None. FINDINGS: 5 views of the cervical spine are obtained. There is no listhesis. The vertebral bodies are normal in height and the disc spaces are preserved. IMPRESSION: No acute osseous finding. Electronically signed by: Anika Giron MD (06/14/2021 10:04 AM) [id number]
== END 2021-06-14 10:33 | disposition home or self-care (01) ==
LOC: ER 09:06
DX: M54.2 Cervicalgia (principal); G89.29 Other chronic pain; I11.0 Hypertensive heart disease with heart failure; I50.9 Heart failure, unspecified; Z88.8 Allergy status to other drugs, medicaments and biological substances; Z88.0 Allergy status to penicillin
CPT/HCPCS: 72040; 99283

== ENCOUNTER 2021-08-01 20:18 | Emergency (ER) | payer SELFPAY ==
[~2021-08-01] VITALS: Ht 170.2 cm; Wt 140.0 kg
[2021-08-01] MEDS ORDERED: MIDAZOLAM HCL PF 5 MG/5 ML VIAL. IV ONE (20:45)
[2021-08-01] MEDS ORDERED: MIDAZOLAM HCL PF 5 MG/5 ML VIAL. ONE (20:47)
--- NOTE | 2021-08-01 20:47 | PHYS DOC ---
Past History Past Medical History: CHF, Other Additional Past Medical Histor: heroine abuse, endocarditis, pul. htn; PE Past Surgical History: Other Additional Past Surgical Histo: Rn continuing to gather information Alcohol Use: None Drug Use: Heroin, Methamphetamine Adult General Chief Complaint Chief Complaint: LOWER EXT PAIN [facility] HPI Patient is a 35-year-old female with a past medical history significant for he roin abuse on methadone at , anxiety, depression and other substances occasionally who presents with the police department for various issues before going to residential. Per PD, after they picked her up she began complaining of multiple things including headache, chest pain, back pain, abdominal pain, leg pain, joint pain, coughing up blood. States these things have been going on, off and on for the last couple of months. Denies any recent traumas, travels, fevers, history of heart attack or stroke, history of VTE. States she has had 2 C-sections. Review of Systems Review of Systems Constitutional: Denies fever or chills [] Eyes: Denies change in visual acuity, redness, or eye pain [] HENT: Denies nasal congestion or sore throat [] Respiratory: Denies cough or shortness of breath [] Cardiovascular: No additional information not addressed in HPI [] GI: Denies abdominal pain, nausea, vomiting, bloody stools or diarrhea [] : Denies dysuria or hematuria [] Musculoskeletal: Denies back pain or joint pain [] Integument: Denies rash or skin lesions [] Neurologic: Denies headache, focal weakness or sensory changes [] Endocrine: Denies polyuria or polydipsia [] All other systems were reviewed and found to be within normal limits, except as documented in this note. Allergies Allergies Allergies Coded Allergies Type Severity Reaction Last Updated Verified prochlorperazine Allergy Intermediate 05/17/21 Yes Penicillins Allergy Unknown 05/17/21 Yes Physical Exam Physical Exam Constitutional: Well developed, well nourished, no acute distress, non-toxic appearance. [] HENT: Normocephalic, atraumatic, Eyes: PERRLA, EOMI, conjunctiva normal, no discharge. [] Neck: Normal range of motion, no tenderness, supple, no stridor. [] Cardiovascular:Heart rate regular rhythm, no murmur [] Lungs & Thorax: No respiratory distress Abdomen:soft, no tenderness, no masses, no pulsatile masses. [] Skin: Warm, dry, no erythema, no rash. [] Back: No tenderness, no CVA tenderness. [] Extremities: No tenderness, no cyanosis, no clubbing, ROM intact, no edema. [] Neurologic: Alert and oriented X 3, normal motor function, normal sensory function, no focal deficits noted. [] Psychologic: Patient anxious, agitated, screaming and yelling, uncooperative, and when asked questions has to be redirected to answering the question as she wants to tell you something else. Denies SI, HI or hallucinations. Current Patient Data Vital Signs Vital Signs Date Time Temp Pulse Resp B/P (MAP) Pulse Ox O2 Delivery O2 Flow Rate FiO2 08/01/21 20:25 99.0 117 18 99 Room Air EKG EKG [] Radiology/Procedures Radiology/Procedures [] Heart Score C/O Chest Pain: Yes HEART Score for Chest Pain: HEART Score for Chest Pain Response (Comments) Value History Slighlty/Non-Suspicious 0 ECG Normal 0 Age < 45 0 Risk Factors 1 or 2 Risk Factors 1 Troponin < Normal Limit 0 Total 1 Risk Factors: Risk Factors: DM, Current or recent (<one month) smoker, HTN, HLP, family history of CAD, obesity. Risk Scores: Risk Factors: DM, Current or recent (<one month) smoker, HTN, HLP, family history of CAD, obesity. Course & Med Decision Making Course & Med Decision Making Patient is a 35-year-old female, homeless, who was brought in by PD before being incarcerated with multiple complaints Vital signs notable for tachycardia. Physical exam noted above. Placed on the monitor with IV access established. Given IV fluid and Versed. Given Tylenol and ibuprofen. Given other narcotic pain medicine. In the emergency department patient coughing up mucus with no obvious blood at all in it. Patient stated that it happened earlier and she does not know why it is not happening now. Laboratory analysis notable for nitrite positive urinary tract infection. CT with patchy groundglass opacities in the right lower lobe suspicious for pneumonia and some possible heart dysfunction with may be pulmonary edema. Patient started on antibiotics for pneumonia and UTI. Discussed all findings with patient and offered admission to the hospital for continued evaluation and treatment. Patient opted to go home and be treated at home despite the risks we discussed including worsening pain, worsening nausea, worsening heart function, significant illness, disability and in the worst case scenario. Patient verbalized understanding of these risks and opted to be discharged home. Advised to follow-up as soon as possible with her primary care physician and return with new or concerning symptoms. Patient verbalized understanding of all this, and agreed to plan of discharge Dragon Disclaimer Dragon Disclaimer This electronic medical record was generated, in whole or in part, using a voice recognition dictation system. Departure Departure: Impression: Primary Impression: Pneumonia Additional Impressions: Urinary tract infection Chest pain Disposition: HOME / SELF CARE / HOMELESS Condition: STABLE Referrals: PCP,SAWYER (PCP) [place] Patient Instructions: Pneumonia, Adult, Urinary Tract Infection Additional Instructions: Thank you for coming into the emergency department tonight and allowing us to take care of you. Please read the attached information carefully to go over things we discussed. Please take your antibiotics as prescribed until gone. You can use Tylenol and ibuprofen as well as Benadryl every 6-8 hours as needed. Please use your nausea medicine as prescribed and as needed. Please use your narcotics as needed. Please do not exceed 3000 mg of Tylenol daily. Please be sure to eat at least 3 nutritious meals a day, stay well-hydrated and take a multivitamin. We discussed your situation and offered you admission to the hospital but you stated you would prefer to go on home and be treated there despite the risk we discussed including worsening of symptoms, worsening pain, nausea, severe illness, disability and in the worst case scenario . He verbalized understanding of this and stated he would prefer to go on it is very important that you follow-up as soon as possible with your primary care physician to update on your ED visit, establish care if needed and set up a follow-up appointment. You are given the name of a local primary care physician and local resources including local free clinics. Please be sure to call in the morning. Please cease using any substances not prescribed physician. Please come back with new or concerning symptoms as discussed. Scripts Levofloxacin (LEVOFLOXACIN) 750 Mg Tablet 1 TAB PO DAILY for PNA, UTI, #10 TAB Prov: EMERSON GORDON MD 08/02/21 Problem Qualifiers EMERSON GORDON MD Aug 01, 2021 20:47
[2021-08-01 21:17] LABS: BASO # 0.2 x10^3/uL (0.0-0.2); BASO % 1 % (0-3); EOS # 0.1 x10^3/uL (0.0-0.7); EOS % 1 % (0-3); HEMATOCRIT 41.7 % (36.0-47.0); HEMOGLOBIN 13.4 g/dL (12.0-15.5); LYMPH # 1.9 x10^3/uL (1.0-4.8); LYMPH % 18 % (24-48); MEAN CORPUSCULAR HEMOGLOBIN 28 pg (25-35); MEAN CORPUSCULAR HGB CONC 32 g/dL (31-37); MEAN CORPUSCULAR VOLUME 86 fL (79-100); MONO # 0.9 x10^3/uL (0.0-1.1); MONO % 8 % (0-9); NEUT # 7.6 x10^3uL (1.8-7.7); NEUT % 71 % (31-73); PLATELET COUNT 301 x10^3/uL (140-400); RED BLOOD COUNT 4.86 x10^6/uL (3.50-5.40); WHITE BLOOD COUNT 10.7 x10^3/uL (4.0-11.0)
[2021-08-01 21:27] LABS: CALCIUM 8.9 mg/dL (8.5-10.1); CREATININE 0.6 mg/dL (0.6-1.0); GFR 115.1; POTASSIUM 3.6 mmol/L (3.5-5.1)
[2021-08-01 21:31] LABS: ALBUMIN 3.4 g/dL (3.4-5.0); ALBUMIN/GLOBULIN RATIO 0.7 (1.0-1.7); TOTAL BILIRUBIN 1.3 mg/dL (0.2-1.0); TOTAL PROTEIN 8.3 g/dL (6.4-8.2)
--- NOTE | 2021-08-01 21:44 | EKG ---
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
[2021-08-01] MEDS ORDERED: CONTRAST GIVEN. MC PRN (21:45)
[2021-08-01] MEDS ORDERED: levoFLOXacin 500 MG TABLET PO ONE (22:00)
[2021-08-01] MEDS ORDERED: levoFLOXacin 250 MG TABLET PO ONE (22:00)
[2021-08-01] MEDS ORDERED: IOHEXOL 350 MG/ML 100 ML VIAL. IV ONE (22:00)
--- NOTE | 2021-08-01 22:19 | RAD ---
Exam: Chest one view INDICATION: Chest pain TECHNIQUE: Frontal view of the chest Comparisons: 05/26/2020 FINDINGS: The cardiomediastinal silhouette and pulmonary vessels are within normal limits. Patchy airspace disease at the lung bases bilaterally. No pleural effusion. IMPRESSION: Bibasilar airspace disease may be infectious or inflammatory in etiology. Electronically signed by: Debbi Carey MD (08/01/2021 10:17 PM) MARY ELLEN
[2021-08-01] MEDS ORDERED: HYDROmorphone PF 1 MG/ML DISP.SYRIN ONE (22:24)
[2021-08-01] MEDS ORDERED: HYDROmorphone PF 2 MG/ML VIAL IVP ONE (23:00)
--- NOTE | 2021-08-01 23:16 | RAD ---
EXAMINATION: CTA CHEST CLINICAL HISTORY: Chest pain. Technique: Spiral CT acquisition of the chest from the thoracic inlet to the upper abdomen following IV contrast with coronal and sagittal reformatted images also provided for review. 3D maximum intensi ty projection images also performed. CT Dose Reduction Employed: One or more of the following individualized dose reduction techniques wer e utilized for this examination: 1. Automated exposure control 2. Adjustment of the mA and/or kV ac cording to patient size 3. Use of iterative reconstruction technique. COMPARISON: Chest radiograph same day FINDINGS: Pulmonary Vasculature: No evidence of main, lobar, or segmental pulmonary arterial thrombus. Lung Parenchyma, Pleura, and Airways: Patchy groundglass opacities in the right lower lobe and to les ser extent right middle lobe. Bibasilar subsegmental atelectasis and/or scarring. Bilateral smooth in terstitial thickening, nonspecific but may be related to edema and/or atypical infection. No pleural effusion. Central airways patent. Lower Neck, Lymph Nodes, and Mediastinum: Visualized thyroid gland within normal limits. No mediastin al, hilar, or axillary lymphadenopathy. Heart, Pericardium, and Thoracic Vessels: Cardiomegaly with asymmetric right heart enlargement, parti cularly involving the right atrium. Reflux of contrast into the HCC and hepatic veins. Thoracic aorta within normal limits. No coronary artery atherosclerotic calcifications are noted, although the stud y is not optimized for coronary assessment. Bones and Soft Tissues: No evidence of acute osseous abnormality. Upper Abdomen: Partially visualized upper abdomen unremarkable. IMPRESSION: No evidence of main, lobar, or segmental pulmonary embolism. Patchy groundglass opacities predominantly in the right lower lobe, suspicious for developing pneumon ia. Evidence of right heart dysfunction with possible pulmonary edema as described. Electronically signed by: Brandon Barnes DO (08/01/2021 11:13 PM) [facility]
[2021-08-02 00:07] VITALS: BP 119/69
[2021-08-02 00:23] LABS: BACTERIA,URINE FEW /HPF (0-FEW); CLARITY,URINE CLEAR; COLOR,URINE YELLOW; GLUCOSE,URINE NEG (NEG); NITRITE,URINE POS (NEG); SQUAMOUS EPITHELIAL CELL,UR MOD /LPF
[2021-08-02] MEDS ORDERED: LEVO750T5 PO (01:26)
[2021-08-02 01:29] LABS: U PREG PATIENT NEGATIVE (NEG)
[2021-08-02] MEDS ORDERED: ONDANSETRON 4MG ODT 4TABLET STARTPACK. PO ONE (02:00)
[2021-08-02] MEDS ORDERED: HYDROmorphone PF 2 MG/ML VIAL IM ONE (02:00)
[2021-08-02] MEDS ORDERED: ACETAMINOPHEN/CODEINE 300/30MG 4TABLET STARTPACK. PO ONE (02:00)
== END 2021-08-02 01:51 | disposition home or self-care (01) ==
LOC: ER 20:18
DX: J18.9 Pneumonia, unspecified organism (principal); N39.0 Urinary tract infection, site not specified; R07.9 Chest pain, unspecified; I50.9 Heart failure, unspecified; Z20.822 Contact with and (suspected) exposure to COVID-19; Z88.0 Allergy status to penicillin; Z88.8 Allergy status to other drugs, medicaments and biological substances
CPT/HCPCS: 36415; 71045; 71275; 80053; 81001; 81025; 84484; 85025; 85379; 87086; 87426; 93005; 96374; 96375; 99285; C9803; J1170; J2250; Q9967; U0003

== ENCOUNTER 2021-09-05 21:08 | Emergency (ER) | payer SELFPAY ==
[~2021-09-05] VITALS: Ht 157.5 cm; Wt 65.3 kg
[~2021-09-05 21:08] MED LIST changes: +LEVO750T5 PO
--- NOTE | 2021-09-05 21:14 | PHYS DOC ---
Past History Past Medical History: CHF, Other Additional Past Medical Histor: heroine abuse, endocarditis, pul. htn; PE Past Surgical History: Other Additional Past Surgical Histo: Rn continuing to gather information Alcohol Use: Rarely Drug Use: Heroin, Methamphetamine General Adult HPI: HPI: ".. I am having a flare of my chronic chest pain.. .. here on the [facility]... it where they did surgery.. for endocarditis.. and blood clotts. that was about a year ago at ..." " I was on the vent for a while.. ".. " I was trying to put a cushion back in the couch.. and it folded up.. and I fell against the couch... and now I hurting along the chest surgery scar..." Patient is a 35 year old female who presents with above hx and complaints of acute on chronic chest wall pain. Patient localizes pain along the previous chest wall scar on the right. 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 Patient is status post paracentesis at [facility]. Patient just finished completing a course antibiotics prescribed by . Patient has been following at since transfer there from [facility] after initially empyema and endocarditis. Review of Systems: Review of Systems: Constitutional: Denies fever or chills Eyes: Denies change in visual acuity HENT: Denies nasal congestion or sore throat Respiratory: Denies cough or shortness of breath Cardiovascular: Patient complains of right chest pain. Pain is increased with deep breaths and cough. GI: Denies abdominal pain, nausea, vomiting, bloody stools or diarrhea : Denies dysuria Musculoskeletal: Denies back pain or joint pain Integument: Denies rash Neurologic: Denies headache, focal weakness or sensory changes Endocrine: Denies polyuria or polydipsia Lymphatic: Denies swollen glands Psychiatric: Denies depression or anxiety Family History: Family History: None contributory presentation Current Medications: Current Meds: See nursing for home meds Allergies: Allergies: Allergies Coded Allergies Type Severity Reaction Last Updated Verified prochlorperazine Allergy Intermediate 05/17/21 Yes Penicillins Allergy Unknown 05/17/21 Yes Physical Exam: PE: Constitutional: Moderate acute distress, non-toxic appearance. [] HENT: Normocephalic, atraumatic, bilateral external ears normal, oropharynx moist, no oral exudates, nose normal. [] Eyes: PERRLA, EOMI, conjunctiva normal, no discharge. [] Neck: Normal range of motion, no tenderness, supple, no stridor. Trachea scar [] Cardiovascular: Tachycardia heart rate regular rhythm, Miltral murmur [] Lungs & Thorax: Bilateral breath sounds equal apex scattered wheezes auscultation [. Has] large right chest wall scar. Chest tube scar. Abdomen: Bowel sounds normal, soft, no tenderness, no masses, no pulsatile masses. Old surgical scar Skin: Warm, dry, no erythema, no rash. Tattoos Back: No tenderness, no CVA tenderness. [] Extremities: No tenderness, no cyanosis, no clubbing, ROM intact, no edema. No cording appreciated Neurologic: Alert and oriented X 3, normal motor function, normal sensory function, no focal deficits noted. [] Psychologic: Affect anxious., judgement normal, mood normal. [] EKG: EKG: My interpretation EKG shows a sinus rhythm at 95 bpm. Right axis deviation. Right ventricle hypertrophic changes. No findings acute STEMI of contralateral changes. Time of EKG is 2329 hrs. [] Radiology/Procedures: Radiology/Procedures: [[place] [address] IMAGING REPORT Signed PATIENT: ALFONZO NG ACCOUNT: [id number] : 1985 LOCATION: ER AGE: 35 SEX: F EXAM STATUS: REG ER ORD. PHYSICIAN: DERRICK CROSS MD REASON: OMNI 350,100ML IV.CP,HX PE,Pneumonia,endocardits. PROCEDURE: CT ANGIOGRAPHY CHEST CT angiography chest with contrast PQRS statement: CT scans at this facility use dose reduction including either automated exposure control, iterative reconstructions, and /or weight based radiation dosing via mA and kV modification when appropriate to reduce radiation dose to as low as reasonably achievable. Contrast: 100 mL Omnipaque 350 intravenous contrast. 3-D MIP reconstructions of the arteries were acquired. HISTORY: Pneumonia, endocarditis. COMPARISON: CT chest 08/01/2021 FINDINGS: There is mild mediastinal and hilar adenopathy which has developed since the prior exam with lymph node diameters of 1.5 cm. Increased size and density of the thymus gland tissue anterior mediastinum is stable. There is left greater than right axillary adenopathy with enlarged lymph nodes as well as supraclavicular adenopathy the largest left axillary lymph node measuring 2.0 x 1.5 cm enlarged left supraclavicular lymph node measuring 1.7 x 1.0 cm, the size and number of these lymph nodes have progressed. Cardiomegaly with marked enlargement of the right heart chambers with reflux of contrast into dilated hepatic veins and IVC, the size of the heart is either more prominent than was on the prior study which may indicate worsening right-sided congestive heart failure. No pulmonary emboli. Aorta and esophagus normal. Development of a small right pleural effusion thickness of 1.5 cm along the right lower chest anteriorly. There is an acute traumatic right lateral fourth rib fracture new from the prior exam image 52, no lytic bone destruction evident. No pneumothorax. Along the lateral pleura of the right upper lobe adjacent to the major fissure there is a 4 x 1 cm oblong density much of this may be extrapleural given fat density between this and the adjacent visceral pleural lung which is mildly deflected, this is adjacent to the rib fracture, and overlying the ribs there is increased soft tissue thickening of the adjacent serratus anterior muscle raising the possibility of either hematoma or infection with chest wall invasion, chest wall invasion of a pleural malignant lesion is a secondary consideration as this is new from 1 month ago. There is a discoid atelectasis as well as probable mild interstitial edema within the bilateral peripheral lung parenchyma and scattered nodular subcentimeter densities have developed at the right upper lobe. IMPRESSION: 1. No pulmonary artery emboli are evident. 2. 4 x 1 cm focal rounded prominence of the pleura overlying the right lateral upper lobe with adjacent extrapleural density and thickening of the right serratus anterior muscle overlying the chest wall, associated with an intervening acute traumatic nondisplaced right lateral fifth rib fracture, these findings are new from prior imaging. This could represent posttraumatic focal loculated hemothorax with overlying extrapleural hematoma and chest wall hematoma with an associated a rib fracture. Atypical infection with pulmonary round pneumonia of the subpleural lung parenchyma with overlying loculated pleural fluid such as empyema necessitans with chest wall invasion would be in the differential diagnosis. 3. Development of a small layering right pleural effusion along the posterior diaphragm. Development of mild pulmonary interstitial edema. The cardiomegaly and right heart chambers have increased in size since the prior exam. These findings raise suspicion of worsening right-sided congestive heart failure. 4. Development of some scattered small nodular densities of the right upper lobe, may indicate an endobronchial infection. Follow-up CT chest imaging in 3-6 months is advised to document that this resolves. 4. Progressive adenopathy in the mediastinum, axilla and lower neck. Electronically signed by: Shannen Jacobs MD (09/06/2021 1:13 AM) [facility] DICTATED AND SIGNED BY: SHANNEN JACOBS MD DATE: 09/06/2156 CC: DERRICK CROSS MD; PCP,NO ~ ][place] [address] IMAGING REPORT Signed PATIENT: ALOFNZO NG ACCOUNT: [id number] : 1985 LOCATION: ER AGE: 35 SEX: F EXAM STATUS: REG ER ORD. PHYSICIAN: DERRICK CROSS MD REASON: chest pain PROCEDURE: CHEST PA & LATERAL PA and lateral chest x-rays HISTORY: Chest pain. COMPARISON: CT chest August 01, 2021. Findings: Mild cardiomegaly is stable. Enlargement of the main pulmonary artery silhouette stable. No pneumothorax. Small right pleural effusion along the diaphragm and blunting the costophrenic angle. Mild fissural thickening may indicate edema. Lower lobe interstitial densities may be edema. Lateral right upper lobe focal opacity. Bones are unremarkable. IMPRESSION: 1. Cardiomegaly, small right pleural effusion and lower lobe pulmonary interstitial infiltrates likely edema. This may be congestive heart failure. 2. Focal opacity of the right upper lobe may represent segmental atelectasis, asymmetric edema, or lobar pneumonia. Electronically signed by: Shannen Jacobs MD (09/05/2021 11:04 PM) [facility] DICTATED AND SIGNED BY: SHANNEN JACOBS MD DATE: 09/05/21 2716 CC: DERRICK CROSS MD; PCP,NO ~ Heart Score: C/O Chest Pain: Yes HEART Score for Chest Pain: HEART Score for Chest Pain Response (Comments) Value History Moderately Suspicious 1 ECG Nonspecific Repolarizatio 1 Age < 45 0 Risk Factors 1 or 2 Risk Factors 1 Troponin < Normal Limit 0 Total 3 Risk Factors: Risk Factors: DM, Current or recent (<one month) smoker, HTN, HLP, family history of CAD, obesity. Risk Scores: Score 0 - 3: 2.5% MACE over next 6 weeks - Discharge Home Score 4 - 6: 20.3% MACE over next 6 weeks - Admit for Clinical Observation Score 7 - 10: 72.7% MACE over next 6 weeks - Early Invasive Strategies Course & Med Decision Making: Course & Med Decision Making Pertinent Labs and Imaging studies reviewed. (See chart for details) Pt. resume antibiotics . will start on clindamycin 300 mg 3 times a day. We will add Flagyl 500 mg 3 times a day. Patient continue this antibiotics for the next 10 days. By that time he should follow-up with primary care at . Comparing CT results here tonight with CTs at . Must follow-up. Patient encouraged to stop smoking. Patient did receive 1 g of Rocephin here in the well as 500 mg of Zithromax during her ED evaluation. Must follow up with and have them compare to her CT here tonight with CTs at . Impression: 1. New rib fracture-area of right chest wall- 5thrib- non displaced 2. Has a rounded extrapleural density-empyema versus hematoma.- 3. CHF-BNP 959 4. Leukocytosis 12.3 5. Elevation D-dimer 1.45 6. Hypomagnesia 1.9 7. Elevated bilirubin 1.9 direct is 1.4, alk phos 349 8. Malnutrition Alb 2.9 9. Hx Polysubstance Abuse 10. Tobacco Use 11. Pulmonary Adenopathy 12. Hx. Pneumonia- recently completed antibiotics [] Dragon Disclaimer: Dragon Disclaimer: This electronic medical record was generated, in whole or in part, using a voice recognition dictation system. Departure Departure: Referrals: PCP,NO (PCP) Scripts Fluconazole (DIFLUCAN) 100 Mg Tablet 100 MG PO DAILY for post antibiotic for 3 Days, #3 TAB Prov: DERRICK CROSS MD 09/06/21 Metronidazole (FLAGYL) 375 Mg Capsule 500 MG PO TID for abscess, #30 CAP Prov: DERRICK CROSS MD 09/06/21 Clindamycin Hcl (CLINDAMYCIN HCL) 300 Mg Capsule 300 MG PO TID for pneumonia for 10 Days, #30 CAP Prov: DERRICK CROSS MD 09/06/21 Dragon Disclaimer This chart was dictated in whole or in part using Voice Recognition software in a busy, high-work load, and often noisy Emergency Department environment. It may contain unintended and wholly unrecognized errors or omissions. DERRICK CROSS MD Sep 05, 2021 21:14
[2021-09-05 23:04] LABS: BASO # 0.1 x10^3/uL (0.0-0.2); BASO % 1 % (0-3); EOS # 0.2 x10^3/uL (0.0-0.7); EOS % 1 % (0-3); HEMATOCRIT 42.5 % (36.0-47.0); HEMOGLOBIN 13.8 g/dL (12.0-15.5); LYMPH # 1.9 x10^3/uL (1.0-4.8); LYMPH % 16 % (24-48); MEAN CORPUSCULAR HEMOGLOBIN 27 pg (25-35); MEAN CORPUSCULAR HGB CONC 33 g/dL (31-37); MEAN CORPUSCULAR VOLUME 84 fL (79-100); MONO # 0.9 x10^3/uL (0.0-1.1); MONO % 8 % (0-9); NEUT # 9.2 x10^3uL (1.8-7.7); NEUT % 75 % (31-73); PLATELET COUNT 282 x10^3/uL (140-400); RED BLOOD COUNT 5.07 x10^6/uL (3.50-5.40); RED CELL DISTRIBUTION WIDTH 15.3 % (11.5-14.5); WHITE BLOOD COUNT 12.3 x10^3/uL (4.0-11.0)
[2021-09-05] MEDS: IV RINGERS SOLUTION,LACTATED 1,000 ML IV SCH (23:04)
[2021-09-05] MEDS: ORPHENADRINE CITRATE 60 MG/2 ML VIAL. IV ONE (23:04)
[2021-09-05] MEDS: KETOROLAC 30 MG/ML VIAL. IVP ONE (23:05)
--- NOTE | 2021-09-05 23:06 | RAD ---
PA and lateral chest x-rays HISTORY: Chest pain. COMPARISON: CT chest August 01, 2021. Findings: Mild cardiomegaly is stable. Enlargement of the main pulmonary artery silhouette stable. No pneumothorax. Small right pleural effusion along the diaphragm and blunting the costophrenic angle. Mild fissural thickening may indicate edema. Lower lobe interstitial densities may be edema. Lateral right upper lobe focal opacity. Bones are unremarkable. IMPRESSION: 1. Cardiomegaly, small right pleural effusion and lower lobe pulmonary interstitial infiltrates likel y edema. This may be congestive heart failure. 2. Focal opacity of the right upper lobe may represent segmental atelectasis, asymmetric edema, or lo bar pneumonia. Electronically signed by: Timothy May MD (09/05/2021 11:04 PM) [facility]
[2021-09-05 23:38] LABS: CALCIUM 9.2 mg/dL (8.5-10.1); CREATININE 0.7 mg/dL (0.6-1.0); GFR 96.4
[2021-09-05] MEDS ORDERED: CONTRAST GIVEN. MC PRN (23:45)
[2021-09-05 23:46] LABS: ALBUMIN 2.9 g/dL (3.4-5.0); DIRECT BILIRUBIN 1.4 mg/dL (0.0-0.2); MAGNESIUM 1.9 mg/dL (1.8-2.4); TOTAL BILIRUBIN 1.9 mg/dL (0.2-1.0); TOTAL PROTEIN 8.6 g/dL (6.4-8.2)
[2021-09-05] MEDS ORDERED: cefTRIAXone SODIUM 1 GM VIAL ONE (23:50)
[2021-09-05] MEDS ORDERED: IV NORMAL SALINE 50ML 50 ML ONE (23:50)
[2021-09-05] MEDS: AZITHROMYCIN 250 MG TABLET. PO ONE (23:52)
[2021-09-05] MEDS: APIXABAN 5 MG TABLET. PO SCH (23:53)
--- NOTE | 2021-09-06 00:10 | EKG ---
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
[2021-09-06] MEDS: IOHEXOL 350 MG/ML 100 ML VIAL. IV ONE (00:35)
--- NOTE | 2021-09-06 01:16 | RAD ---
CT angiography chest with contrast PQRS statement: CT scans at this facility use dose reduction including either automated exposure cont rol, iterative reconstructions, and /or weight based radiation dosing via mA and kV modification when appropriate to reduce radiation dose to as low as reasonably achievable. Contrast: 100 mL Omnipaque 350 intravenous contrast. 3-D MIP reconstructions of the arteries were acq uired. HISTORY: Pneumonia, endocarditis. COMPARISON: CT chest 08/01/2021 FINDINGS: There is mild mediastinal and hilar adenopathy which has developed since the prior exam wit h lymph node diameters of 1.5 cm. Increased size and density of the thymus gland tissue anterior medi astinum is stable. There is left greater than right axillary adenopathy with enlarged lymph nodes as well as supraclavicular adenopathy the largest left axillary lymph node measuring 2.0 x 1.5 cm enlarg ed left supraclavicular lymph node measuring 1.7 x 1.0 cm, the size and number of these lymph nodes h ave progressed. Cardiomegaly with marked enlargement of the right heart chambers with reflux of contr ast into dilated hepatic veins and IVC, the size of the heart is either more prominent than was on th e prior study which may indicate worsening right-sided congestive heart failure. No pulmonary emboli. Aorta and esophagus normal. Development of a small right pleural effusion thickness of 1.5 cm along the right lower chest anteriorly. There is an acute traumatic right lateral fourth rib fracture new f rom the prior exam image 52, no lytic bone destruction evident. No pneumothorax. Along the lateral pl eura of the right upper lobe adjacent to the major fissure there is a 4 x 1 cm oblong density much of this may be extrapleural given fat density between this and the adjacent visceral pleural lung which is mildly deflected, this is adjacent to the rib fracture, and overlying the ribs there is increased soft tissue thickening of the adjacent serratus anterior muscle raising the possibility of either he matoma or infection with chest wall invasion, chest wall invasion of a pleural malignant lesion is a secondary consideration as this is new from 1 month ago. There is a discoid atelectasis as well as pr obable mild interstitial edema within the bilateral peripheral lung parenchyma and scattered nodular subcentimeter densities have developed at the right upper lobe. IMPRESSION: 1. No pulmonary artery emboli are evident. 2. 4 x 1 cm focal rounded prominence of the pleura overlying the right lateral upper lobe with adjace nt extrapleural density and thickening of the right serratus anterior muscle overlying the chest wall , associated with an intervening acute traumatic nondisplaced right lateral fifth rib fracture, these findings are new from prior imaging. This could represent posttraumatic focal loculated hemothorax w ith overlying extrapleural hematoma and chest wall hematoma with an associated a rib fracture. Atypi amber infection with pulmonary round pneumonia of the subpleural lung parenchyma with overlying loculat ed pleural fluid such as empyema necessitans with chest wall invasion would be in the differential di agnosis. 3. Development of a small layering right pleural effusion along the posterior diaphragm. Development of mild pulmonary interstitial edema. The cardiomegaly and right heart chambers have increased in siz e since the prior exam. These findings raise suspicion of worsening right-sided congestive heart fail ure. 4. Development of some scattered small nodular densities of the right upper lobe, may indicate an end obronchial infection. Follow-up CT chest imaging in 3-6 months is advised to document that this resol ves. 4. Progressive adenopathy in the mediastinum, axilla and lower neck. Electronically signed by: Timothy May MD (09/06/2021 1:13 AM) [facility]
[2021-09-06] MEDS: CLINDAMYCIN HCL 150 MG CAPSULE PO ONE (01:58)
[2021-09-06 01:59] VITALS: BP 130/67
[2021-09-06] MEDS ORDERED: FLUC100T7 PO (01:59)
[2021-09-06] MEDS ORDERED: CLIN-95 PO (01:59)
[2021-09-06] MEDS ORDERED: METR375C PO (01:59)
== END 2021-09-06 02:10 | disposition home or self-care (01) ==
LOC: ER 21:08
DX: S22.31XA Fracture of one rib, right side, initial encounter for closed fracture (principal); I50.9 Heart failure, unspecified; D72.829 Elevated white blood cell count, unspecified; R79.1 Abnormal coagulation profile; E83.42 Hypomagnesemia; R79.89 Other specified abnormal findings of blood chemistry; E46 Unspecified protein-calorie malnutrition; R59.9 Enlarged lymph nodes, unspecified; Z68.26 Body mass index [BMI] 26.0-26.9, adult; Z86.2 Personal history of diseases of the blood and blood-forming organs and certain disorders involving the immune mechanism; Z88.0 Allergy status to penicillin; Z88.8 Allergy status to other drugs, medicaments and biological substances; X58.XXXA Exposure to other specified factors, initial encounter; Y93.89 Activity, other specified; Y92.89 Other specified places as the place of occurrence of the external cause; Y99.8 Other external cause status
CPT/HCPCS: 36415; 71046; 71275; 80048; 80076; 82550; 83690; 83735; 83880; 84443; 84484; 85025; 85379; 85610; 85730; 93005; 96361; 96365; 96375; 99285; J0696; J1885; J2060; J2360; J7120; Q9967